=== PATIENT | male | born 1950 | race Caucasian/White ===

== ENCOUNTER 2022-09-15 10:45 | Outpatient (REF) | payer BC, SELFPAY ==
[2022-09-15 11:20] LABS: MANUAL DIFF FLAG NO
[2022-09-15 11:47] LABS: Basophils Absolute Auto 0.1 X10*3/uL (0.0-0.2); Basophils Percent Auto 1.3 % (0-2); Eosinophils Absolute Auto 0.1 X10*3/uL (0.0-0.4); Eosinophils Percent Auto 0.8 % (0-4); Hematocrit 45.1 % (42.0-52.0); Hemoglobin 15.4 g/dl (14.0-18.0); Imm Gran Abs Auto 0.02 X10*3/uL (0.00-0.03); Imm Gran Pct Auto 0.3 % (0.0-0.4); Lymphocytes Absolute Auto 2.6 X10*3/uL (1.2-4.9); Lymphocytes Percent Auto 33.9 % (20-40); Mean Corpuscular HGB Conc 34.1 g/dl (31.0-36.0); Mean Corpuscular Hemoglobin 30.8 pg (27.0-33.0); Mean Corpuscular Volume 90.2 fL (80.0-98.0); Mean Platelet Volume 9.9 fL (9.4-12.4); Monocytes Absolute Auto 0.7 X10*3/uL (0.1-1.2); Monocytes Percent Auto 9.3 % (2-11); Neutrophils Absolute Auto 4.2 x10*3/uL (2.0-8.3); Neutrophils Percent Auto 54.4 % (45-73); Platelet Count 298 X10*3/uL (160-400); Red Cell Distribution Width 12.8 % (11.0-16.0); White Blood Count 7.7 X10*3/uL (4.8-10.8)
[2022-09-15 12:35] LABS: TSH reflex Free T4 1.15 uIU/mL (0.32-4.0)
[2022-09-15 12:38] LABS: Anion Gap 14 (12-20); Blood Urea Nitrogen 25 mg/dL (9-16); Calcium 9.5 mg/dL (8.4-10.2); Carbon Dioxide 25 mmol/L (22-29); Chloride 105 mmol/L (96-108); Estimated Glomerular Filt Rate 60; Glucose Random 101 mg/dL (60-115); Potassium 4.8 mmol/L (3.3-5.1); Sodium 139 mmol/L (135-145)
[2022-09-15 13:28] LABS: Folate 9.8 ng/mL (> or = 4.0); Vitamin B12 490 pg/mL (200-900)
[2022-09-21 12:41] LABS: Vitamin D 25-OH, D2 <4 ng/mL; Vitamin D 25-OH, D3 31 ng/mL; Vitamin D 25-OH, Total 31 ng/mL (30-100)
== END 2022-09-15 10:46 | disposition home or self-care (01) ==
LOC: HO.LAB 10:45
PROVIDERS: PCP Internal Medicine; Visit Provider Psychiatry & Neurology Neurology
DX: R41.89 Other symptoms and signs involving cognitive functions and awareness (principal); R47.89 Other speech disturbances
CPT/HCPCS: 36415; 80048; 82306; 82607; 82746; 84443; 85025

== ENCOUNTER 2022-09-26 14:16 | Outpatient (REF) | payer BC, SELFPAY ==
--- NOTE | ~2022-09-26 | MR_ITS ---
EXAMINATION: MR BRAIN WITHOUT CONTRAST CLINICAL INFORMATION: Speech disturbance. Memory problems. COMPARISON: None TECHNIQUE: Multiplanar, multisequence imaging of the brain was performed without contrast. FINDINGS: No diffusion abnormalities are identified to suggest an acute infarct. No hydrocephalus evident. No mass effect or midline shift is seen. Moderate diffuse brain parenchymal volume loss noted with ex vacuo dilatation of the ventricles. Nonspecific minimal scattered white matter signal changes may be due to chronic microangiopathy. Mild ex vacuo dilatation along the lateral juares of the lateral ventricles near the frontal horns may be due to focal chronic infarcts. No extra-axial fluid collections are seen. The brainstem and cerebellum are normal. The gradient refocused acquisition demonstrates no pathologic magnetic susceptibility artifact to indicate underlying acute or chronic blood products. The craniovertebral junction, marrow signal, and midline structures are normal. The major intracranial flow voids at the level of the [place] of [place] are preserved. The dural venous sinus flow voids are maintained. The mastoid air cells and paranasal sinuses are well aerated. MR/MR head/brain wo con IMPRESSION: No acute intracranial process. Moderate diffuse parenchymal volume loss and mild chronic white matter microangiopathy.
== END 2022-09-26 14:17 | disposition home or self-care (01) ==
LOC: HO.MRI 14:16
PROVIDERS: Visit Provider Psychiatry & Neurology Neurology
DX: R47.89 Other speech disturbances (principal); R41.89 Other symptoms and signs involving cognitive functions and awareness
CPT/HCPCS: 70551

== ENCOUNTER → 2022-12-18 11:00 | Outpatient (BNVA) | payer BC, SELFPAY | PROVIDERS: PCP Internal Medicine; Visit Provider Psychiatry & Neurology Neurology | DX: R47.89 Other speech disturbances (principal); R41.89 Other symptoms and signs involving cognitive functions and awareness; F41.9 Anxiety disorder, unspecified ==

== ENCOUNTER 2024-12-16 11:23 | Outpatient (AMB) | payer BC, SELFPAY ==
--- NOTE | 2024-12-16 11:24 | A.OFFVIS_ITS ---
Vital Signs 12/16/24 11:26 Height 6 ft 4 in Weight 270 lb BMI 32.9 BP 132/88 Blood Pressure Location Rt brachial Position Sitting Intake Visit Reasons: f/u appt Intake Note: Patient presents for follow up Allergies No Known Allergies Allergy (Verified 12/16/24 11:27) Medication List - Last Reconciled 12/16/24 by Tonia Coe MD amlodipine 10 mg PO DAILY apple cider vinegar mg PO DAILY citalopram 20 mg PO DAILY lorazepam 0.5 mg PO BID PRN magnesium oxide 400 mg PO DAILY metoprolol succinate ER 50 mg PO DAILY az-er-io1-hap-zhh-wqsq-lut-mitch 200-125-50 mg 1 cap PO DAILY pravastatin 20 mg PO DAILY warfarin 5 mg PO DAILY HPI Comments Details: 74y/o male comes for follow up of short term memory issues that started 6 years ago.He comes for follow up after 2 years. Citalopram helps and he alos take slorazepam He thought his father had Alzheimer but recently learnt that it was Lewy body disease. 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 He is accompanied by his girlfriend who helps with history. Even while working ( he used to travel - retired 2 years ago) he left his hotel room without his suitcase.He was rushing out and was anxious at that time. 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 He retired 2 years ago his anxiety is better but gets overwhelmed if eh has multiple appointments or commitments. He worries a lot.No h/o anxiety or panic attack .Noh/o depression No h/o head injury . 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 He gave his dog the patients medication and had to take the dog to ER.He freque ntly misplaces. He drives good. No accidents. He sleeps ok . He has some daytime fatigue and he takes 1 nap. No gasping arousals. He has had some arousals at night. [facility] Medical History Hypersomnia Snoring Polio Depression Anxiety Atrial fibrillation GERD (gastroesophageal reflux disease) Hyperlipidemia Surgical History History of spinal surgery Hx of tonsillectomy History of esophagogastroduodenoscopy H/O colonoscopy Family History Father Prostate cancer Alzheimer disease Mother Enlarged heart Social History Alcohol intake: current Alcohol intake frequency: holidays/special occasions only Patient Tobacco Use Status: Former Tobacco user Physical Exam Vital Signs: Last Vital Signs BP 132/88 12/16/24 11:26 BMI result Body Mass Index 32.9 Const Orientation/consciousness: patient oriented x3 Neuro General: patient oriented x3, gait normal, tone normal, moves all extremities and no focal motor deficits Cranial nerves: Yes Nystagmus not present, Yes Normal facial strength present and Yes Midline tongue present Motor exam (neuro): 5/5 motor strength present throughout Orientation What is the (year) (season) (date) (day) (month)?: year, season, date, day and month Where are we (state) (county) (town or city) (hospital) (floor)?: state, county, town or city, hospital/clinic and floor Registration Name of 3 unrelated objects clearly and slowly, then ask patient to repeat all 3 of them. (1st repeat determines score. Make sure they can repeat all three): object 1, object 2 and object 3 Attention & Calculation (CHOOSE ONE) Spell WORLD backwards (DLROW): 5 letters Recall Ask patient to repeat the 3 items from question #3.: object 1, object 2 and object 3 Language Show patient a wristwatch & ask what it is. Repeat for pencil.: watch and pencil Ask the patient to repeat the phrase 'No ifs, ands, or buts' after you.: correct Ask the patient to 'take a piece of paper with their right hand' 'fold paper in half' 'place paper on floor': take paper in right hand, fold paper in half and place paper on floor Print the sentence 'CLOSE YOUR EYES' on a piece. If patient actually closes eyes then score.: followed written direction Give patient a blank piece of paper & ask to write a sentence. Score if it contains a noun & verb.: sentence contains subject and verb Ask patient to copy figure of intersecting pentagons exactly. Score if all 10 angles & 2 intersects are included.: all 10 angles present & 2 are intersected Score Score: 30 Assessment & Plan Assessment & Plan (1) Cognitive change: Comment: Untreated sleep apnea ?? mood related Code(s): R41.89 - Other symptoms and signs involving cognitive functions and awareness Category: Medical (2) Anxiety: Comment: with panic disorder Code(s): F41.9 - Anxiety disorder, unspecified Category: Medical (3) Word finding difficulty: Code(s): R47.89 - Other speech disturbances Category: Medical Plan MRI Brain and labs reviewed Continue citalopram 20mg qd Home sleep test to r/o sleep apnea. PET AMYloid scan Orders: Orders PET Brain beta amyloid Today R41.89 - Other symptoms and signs involving cognitive functions and awareness Coding Level of Care Code Est Pt Level 4 (48592) Diagnoses Cognitive change R41.89 Anxiety F41.9 Word finding difficulty R47.89
[2024-12-16 11:26] VITALS: BP 132/88; BMI 32.9
== END 2024-12-16 12:00 | disposition home or self-care (01) ==
PROVIDERS: PCP Internal Medicine; Visit Provider Psychiatry & Neurology Neurology
DX: R41.89 Other symptoms and signs involving cognitive functions and awareness (principal); F41.9 Anxiety disorder, unspecified; R47.89 Other speech disturbances
CPT/HCPCS: 99214

== ENCOUNTER 2025-01-22 13:50 | Outpatient (REF) | payer MEDICARE, SELFPAY ==
--- OUTSIDE RECORDS SUMMARY | 2025-01-22 16:44 | XMS_ITS | Encounter Summary ---
Author Organization [facility] Address [address] [place] [address] Care Team Providers Care Insole Reinforcer Name Role Phone Gabriele Roberson MD Primary Care Provider [phone] Reason for Referral * Imaging (Routine) - Pending Review Specialty Diagnoses / Procedures Referred By Srikanth angel Referred To Contact Radiology Diagnoses Other symptoms and signs involving cognitive functions and awareness Procedures PET CT Limited Area Initial Tonia Coe MD [facility] [address] [place] [address] Phone: tel: fax: [facility] Referral ID Status Reason Start Date Expiration Date V isits Requested Visits Authorized [id number] Pending Review 01/08/2025 01/08/2026 1 1 Reason for Visit * Imaging (Routine) - Pending Review Specialty Diagnoses / Procedures Referred By Srikanth angel Referred To Contact Radiology Diagnoses Other symptoms and signs involving cognitive functions and awareness Procedures PET CT Limited Area Initial Tonia Coe MD [facility] [address] [place] [address] Phone: tel: fax: [facility] Referral ID Status Reason Start Date Expiration Date V isits Requested Visits Authorized [id number] Pending Review 01/08/2025 01/08/2026 1 1 Encounter Details Date Type Department Care Team (Latest Contact Info) Description 01/09/2025 2:00 PM EST - 01/09/2025 11:59 PM EST Hospital Encounter [facility] PET Scan [address] [place] [address] Other symptoms and signs involving cognitive functions and awareness Discharge Disposition: Home or Self Care Social History Tobacco Use Types Packs/Day Years Used Date Smoking Tobacco: Former Cigarettes Q uit: 05/28/2008 Smokeless Tobacco: Never Alcohol Use Standard Drinks/Week Comments No 0 (1 standard drink = 0.6 oz pur e alcohol) Sex and Gender Information Value Date Recorded Sex Assigned at Not on file Legal Sex Male 6:43 AM EST Gender Identity Not on file Sexual Orientation Not on file documented as of this encounter Medications at Time of Discharge APPLE CIDER VINEGAR ORAL Take by mouth. citalopram (CeleXA) 10 mg tablet Take 1 tablet (10 mg total) by mouth 1 (one) time each day. 09/11/2022 CYANOCOBALAMIN, VITAMIN B-12, ORAL Take by mouth. magnesium oxide (MAG-OX) 400 mg magnesium tablet Take 1 tablet (400 mg total) by mouth 1 (one) time each day. OMEGA-3 FATTY ACIDS-FISH OIL ORAL Take by mouth. amLODIPine (NORVASC) 10 mg tablet Take 1 tablet (10 mg total) by mouth 1 (one) time each day. 07/22/2024 01/16/2025 metoprolol succinate (TOPROL-XL) 50 mg 24 hr tablet TAKE 1 TABLET BY MOUTH EVERY DAY 90 tablet 10/21/2024 01/16/2025 pravastatin (PRAVACHOL) 20 mg tablet TAKE 1 TABLET BY MOUTH EVERY DAY 90 tablet 10/21/2024 01/20/2025 warfarin (COUMADIN) 5 mg tablet TAKE 1-1.5 TABLETS BY MOUTH DAILY. DIRECTED. MAY CAUSE HEAVY BLEEDING. TAKE AT SAME TIME EVERY DAY. DO NOT CHANGE DIETARY HABITS. 06/25/2024 01/22/2025 documented as of this encounter Discharge Disposition Disposition Code Departure Means Destination Home or Self Care documented in this encounter Plan of Treatment Upcoming Encounters Date Type Department Care Team (Latest Contact Info) Description 01/26/2025 9:15 AM EST [facility] - [facility] [id number] 03/09/2025 3:30 PM EDT Ancillary Procedure [facility] - [address] [place] [address] 07/24/2025 2:40 PM EDT Office Visit [facility] - [address] [place] [address] Demetrio Alexander NP [address] [place] [address] Pending Results Name Type Priority Associated Diagnoses Date /Time PET CT Limited Area Initial Imaging Routine Other symptoms and signs involving cognitive functions and awareness 01/09/2025 3:10 PM EST Scheduled Orders Name Type Priority Associated Diagnoses Orde r Schedule PET CT Limited Area Initial Imaging Routine Other symptoms and signs involving cognitive functions and awareness Once for 1 Occurrences starting 01/08/2025 until 01/08/2025 documented as of this encounter Visit Diagnoses Diagnosis Other symptoms and signs involving cognitive functions and awareness documented in this encounter Administered Medications Inactive Administered Medications - up to 3 most recent administrations Medication Order MAR Action Action Date Dose Rate Site F-18 florbetapir radio-isotope injection 10 millicurie 10 millicurie, intravenous, Once in imaging, Starting on Sun01/09/25 at 1400, For 1 dose Given 01/09/2025 2:00 PM EST 10 millicuries Right Antecubital documented in this encounter Orders Medications Ordered That Moustapha ht Not Have Been Administered Count Last Ordered Date First Ordered Date F-18 florbetapir radio-isoto pe injection 10 millicurie 1 01/09/2025 documented in this encounter Care Teams Insole Reinforcer Relationship Specialty Start Date End Date Gabriele Roberson MD [address] [place] [address] PCP - General Internal Medicine 10/13/24 documented as of this encounter
--- OUTSIDE RECORDS SUMMARY | 2025-01-22 16:44 | XMS_ITS | Encounter Summary ---
Author Organization [facility] Address [address] [place] [address] Care Team Providers Care Bean Viner Name Role Phone Gabriele Roberson MD Primary Care Provider [phone] Reason for Referral * Imaging (Routine) - Pending Review Specialty Diagnoses / Procedures Referred By Contac t Referred To Contact Cardiology Diagnoses Atrial fibrillation, unspecified type (CMS/HCC) Procedures Transthoracic echocardiogram (TTE) complete with PRN contrast, bubble, strain, and 3D order panel SC TTE W 2D IMAGE COMPLETE W DOPPLER ECHO & COLOR FLOW DOPPLER ECHO SC SHILPA 2D COMPLETE W/CONTRAST OR W & WO CONTRAST WITH DOPPLER Demetrio Alexander NP [address] [place] [address] Phone: tel: fax: [facility] Referral ID Status Reason Start Date Expiration Date V isits Requested Visits Authorized [id number] Pending Review 01/20/2025 01/20/2026 1 1 Reason for Visit * Reason Comments Follow-up Encounter Details Date Type Department Care Team (Late st Contact Info) Description 01/20/2025 10:40 AM EST Office Visit [facility] [address] [facility] [address] [place] [phone] Demetrio Alexander NP [address] [place] [address] Atrial fibrillation, unspecified type (CMS/HCC) (Primary Dx); Hyperlipidemia, unspecified hyperlipidemia type; Primary hypertension Social History Tobacco Use Types Packs/Day Years [...] on file documented as of this encounter Last Filed Vital Signs Vital Sign Reading Time Taken Comments Blood Pressure 122/66 01/20/2025 10:49 AM EST Pulse 58 01/20/2025 10:49 AM EST Temperature - - Respiratory Rate - - Oxygen Saturation 99% 01/20/2025 10:49 AM EST Inhaled Oxygen Concentration - - Weight 124 kg (274 lb) 01/20/2025 10:49 AM EST Height 193 cm (6' 4 ) 01/20/2025 10:49 AM EST Body Mass Index 33.35 01/20/2025 10:49 AM EST documented in this encounter Ordered Prescriptions Prescription Sig Dispense Quantity Refills Last Filled Start Date End Date pravastatin (PRAVACHOL) 20 mg tablet Take 2 tablets (40 mg total) by mouth 1 (one) time each day. 90 tablet 01/20/2025 documented in this encounter Progress Notes * Demetrio Alexander NP - 01/20/2025 10:40 AM ESTAssociated Problem(s): Atrial fibrillation (CMS/HCC) Patient is in atrial fibrillation today. He reports that he does not have any symptoms. Denies any abnormal bleeding. He is rate controlled with metoprolol and is on warfarin for CVA prophylaxis. Patient has a [id number] score of a 2 and should remain anticoagulated. I am also going to be updating an echocardiogram. Orders: ECG 12 lead Transthoracic echocardiogram (TTE) complete with PRN contrast, bubble, strain, and 3D order panel; Future * Demetrio Alexander NP - 01/20/2025 10:40 AM ESTAssociated Problem(s): Hyperlipidemia Most recent LDL value I have reports that it was elevated at 133. I would like this to be under 100and closer to 70. Him going to increase his dosage of the pravastatin have him redraw a lipid profile and 3 months. Pravastatin new dosage will be 40 mg p.o. daily. Instructed to call 911 or go to the emergency room should the patient begin to experience chest pain or pressure lasting greater than 10 minutes does not resolve with rest. Orders: Lipid panel; Future * Demetrio Alexander NP - 01/20/2025 10:40 AM ESTAssociated Problem(s): Hypertension Well-controlled. Continue current medication regiment. * Demetrio Alexander NP - 01/20/2025 10:40 AM EST Images from the original note were not included. [facility] PRIMARY WATCH CASE POLISHER: Ashley Mercado MD PCP: Gabriele Roberson MD HPI: Juice Pennington is a 74 y.o. old male who presents for cardiac follow-up: 1. Chronic A-fib 2. Hyperlipidemia 3. Hypertension Patient was last in the office a year and a half prior to this appointment. He also has a past medical history significant for anxiety disorder, depression, GERD, cervical radiculitis. At his previous appointment he reportedly was doing well from a cardiac standpoint. Was denying all cardiac symptoms and was walking for 20 minutes a day at a moderate to fast pace with his dogs. Patient is here for routine cardiac follow-up. He seems to be doing well from a cardiac standpoint.He reports that he is relatively active during the day, but he does slow down during the winter dueto the unpleasantness of walking outside in cold weather and over ice. He is relatively active during the day regardless, he is retired, but his works so he does a lot of the household responsibi lities. Denies chest pain, pressure, shortness of breath, dyspnea exertion, dizziness, lightheadedness, presyncope or syncope. The patient denies palpitations, peripheral edema, abdominal distention,PND or orthopnea. There have been no falls or cardiac related hospitalizations since the last office visit. He also denies any abnormal bleeding. ACTIVE MEDICATIONS: Outpatient Medications Marked as Taking for the 01/20/25 encounter (Office Visit) with Demetrio Alexander NP Medication Sig Dispense Refill amLODIPine (NORVASC) 10 mg tablet TAKE 1 TABLET BY MOUTH EVERY DAY 90 tablet 0 APPLE CIDER VINEGAR ORAL Take by mouth. citalopram (CeleXA) 10 mg tablet Take 1 tablet (10 mg total) by mouth 1 (one) time each day. CYANOCOBALAMIN, VITAMIN B-12, ORAL Take by mouth. magnesium oxide (MAG-OX) 400 mg magnesium tablet Take 1 tablet (400 mg total) by mouth 1 (one) timeeach day. metoprolol succinate (TOPROL-XL) 50 mg 24 hr tablet TAKE 1 TABLET BY MOUTH EVERY DAY 90 tablet 0 OMEGA-3 FATTY ACIDS-FISH OIL ORAL Take by mouth. pravastatin (PRAVACHOL) 20 mg tablet Take 2 tablets (40 mg total) by mouth 1 (one) time each day. 90 tablet 0 warfarin (COUMADIN) 5 mg tablet TAKE 1-1.5 TABLETS BY MOUTH DAILY. DIRECTED. MAY CAUSE HEAVY BLEEDING. TAKE AT SAME TIME EVERY DAY. DO NOT CHANGE DIETARY HABITS. [DISCONTINUED] pravastatin (PRAVACHOL) 20 mg tablet TAKE 1 TABLET BY MOUTH EVERY DAY 90 tablet 0 PAST MEDICAL HISTORY: Patient Active Problem List Diagnosis Anxiety Atrial fibrillation (CMS/HCC) Cervical radiculitis COVID-19 virus detected Depression GERD (gastroesophageal reflux disease) Hyperlipidemia Hypertension Polio ALLERGIES: No Known Allergies SOCIAL HISTORY: Social History Tobacco Use Smoking status: Former Current packs/day: 0.00 Types: Cigarettes Quit date: 05/28/2008 Years since quittin.6 Smokeless tobacco: Never Substance Use Topics Alcohol use: No PHYSICAL EXAM: Vitals: 01/20/25 1049 BP: 122/66 BP Location: Left arm Patient Position: Sitting BP Cuff Size: Large adult Pulse: 58 SpO2: 99% Weight: 124 kg (274 lb) Height: 1.93 m (76 ) Physical Exam Constitutional: General: He is not in acute distress. HENT: Head: Normocephalic. Right Ear: External ear normal. Left Ear: External ear normal. Nose: Nose normal. Eyes: Conjunctiva/sclera: Conjunctivae normal. Cardiovascular: Rate and Rhythm: Normal rate. Rhythm irregular. Pulses: Normal pulses. Heart sounds: Normal heart sounds. No murmur heard. No friction rub. No gallop. Pulmonary: Effort: Pulmonary effort is normal. Breath sounds: Normal breath sounds. No wheezing, rhonchi or rales. Chest: Chest wall: No tenderness. Abdominal: General: There is no distension. Musculoskeletal: General: No swelling or tenderness. Cervical back: Neck supple. Right lower leg: No edema. Left lower leg: No edema. Skin: General: Skin is warm and dry. Neurological: General: No focal deficit present. Mental Status: He is alert and oriented to person, place, and time. Psychiatric: Mood and Affect: Mood normal. Behavior: Behavior normal. Thought Content: Thought content normal. Judgment: Judgment normal. EKG: TESTING: ASSESSMENT/PLAN: Assessment & Plan Atrial fibrillation, unspecified type (CMS/HCC) Patient is in atrial fibrillation today. He reports that he does not have any symptoms. Denies any abnormal bleeding. He is rate controlled with metoprolol and is on warfarin for CVA prophylaxis. Patient has a [id number] score of a 2 and should remain anticoagulated. I am also going to be updating an echocardiogram. Orders: ECG 12 lead Transthoracic echocardiogram (TTE) complete with PRN contrast, bubble, strain, and 3D order panel; Future Hyperlipidemia, unspecified hyperlipidemia type Most recent LDL value I have reports that it was elevated at 133. I would like this to be under 100and closer to 70. Him going to increase his dosage of the pravastatin have him redraw a lipid profile and 3 months. Pravastatin new dosage will be 40 mg p.o. daily. Instructed to call 911 or go to the emergency room should the patient begin to experience chest pain or pressure lasting greater than 10 minutes does not resolve with rest. Orders: Lipid panel; Future Primary hypertension Well-controlled. Continue current medication regiment. Thank you for allowing us to participate in the care of this patient. The patient will follow up in6 months, sooner PRN. As per AHA guidelines and previously established plan of care by Dr. Ashley Mercado MD, we discussedthe following today: 1. Atrial fibrillation, unspecified type (CMS/HCC) 2. Hyperlipidemia, unspecified hyperlipidemia type 3. Primary hypertension [facility] documented in this encounter Plan of Treatment Upcoming Encounters Date Type Department Care Team (Latest Contact Info) Description 01/26/2025 9:15 AM EST Anticoagulation - Warfarin Visit [facility] [address] [place] [address] 03/09/2025 3:30 PM EDT Ancillary Procedure [facility] - [address] [place] [address] 07/24/2025 2:40 PM EDT Office Visit [facility] - [address] [place] [address] Demetrio Alexander NP [address] [place] [address] Scheduled Orders Name Type Priority Associated Diagnoses Orde r Schedule Lipid panel Lab Routine Hyperlipidemia, unspecified hyperlipidemia type Expected: 01/20/2025, Expires: 01/20/2026 Transthoracic echocardiogram (TTE) complete with PRN contrast, bubble, strain, and 3D order panel Echocardiography Routine Atrial fibrillation, unspecified type (CMS/HCC) 1 Occurrences starting 01/20/2025 until 01/20/2026 documented as of this encounter Procedures Procedure Name Priority Date/Time Associated Diagnosis Comments ECG 12-LEAD Routine 01/20/2025 1:38 PM EST Atrial fibrillation, unspecified type (CMS/HCC) documented in this encounter Results * ECG 12 lead (01/20/2025 1:38 PM EST) 01/20/2025 10:5 3 AM EST us Demetrio Alexander NP ECG ORDERABLES Final Result GEMUSE documented in this encounter Visit Diagnoses Diagnosis Atrial fibrillation, unspecified type ([facility])- Primary Hyperlipidemia, unspecified hyperlipidemia type Primary hypertension Unspecified essential hypertension documented in this encounter Discontinued Medications Medication Sig Discontinue Reason Start Date End Da te pravastatin (PRAVACHOL) 20 mg tablet TAKE 1 TABLET BY MOUTH EVERY DAY 10/21/2024 01/20/2025 documented as of this encounter Care Teams Bean Viner Relationship Specialty Start Date End Date Gabriele Roberson MD [address] [place] [address] PCP - General Internal Medicine 10/13/24 documented as of this encounter
--- OUTSIDE RECORDS SUMMARY | 2025-01-22 16:44 | XMS_ITS | Encounter Summary ---
Author Organization [facility] Address [address] [place] [address] Care Team Providers Care Real Estate Legal Secretary Name Role Phone Gabriele Roberson MD Primary Care Provider [phone] Reason for Visit * Reason Onset Date Comments Request For Order(s) 01/21/2025 Inr lab Encounter Details Date Type Department Care Team (Late st Contact Info) Description 01/21/2025 Telephone [facility] [address] [place] [address] Yumi Castillo LPN Request For Order(s) (Inr lab) Social History Tobacco Use Types Packs/Day Years [...] on file documented as of this encounter Plan of Treatment Upcoming Encounters Date Type Department Care Team (Latest Contact Info) Description 01/26/2025 9:15 AM EST Anticoagulation - Warfarin Visit [facility] [address] [place] [address] 03/09/2025 3:30 PM EDT Ancillary Procedure [facility] - [address] [place] [address] 07/24/2025 2:40 PM EDT Office Visit [facility] - [address] [address] Demetrio Alexander NP [address] [place] [address] Scheduled Orders Name Type Priority Associated Diagnoses Orde r Schedule Prothrombin time with INR Lab Routine Atrial fibrillation, unspecified 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
--- OUTSIDE RECORDS SUMMARY | 2025-01-22 16:44 | XMS_ITS | Encounter Summary ---
Author Organization [facility] Address [address] [place] [address] Care Team Providers Care Staker Surveying Name Role Phone Gabriele Roberson MD Primary Care Provider [phone] Encounter Details Date Type Department Care Team (Latest Contact Info) Description 12/11/2024 9:00 AM EST Anticoagulation - Warfarin Visit [facility] [address] [place] [address] Atrial fibrillation, unspecified type (CMS/HCC) (Primary Dx) Social History Tobacco Use Types Packs/Day Years [...] on file documented as of this encounter Progress Notes * Henrietta Castillo LPN - 12/11/2024 9:00 AM ESTAddended by: HENRIETTA CASTILLO on: 01/12/2025 01:13 PM Modules accepted: Level of Service documented in this encounter Plan of Treatment Upcoming Encounters Date Type Department Care Team (Latest Contact Info) Description 01/26/2025 9:15 AM EST Anticoagulation - Warfarin Visit [facility] [address] [place] [address] 03/09/2025 3:30 PM EDT Ancillary Procedure [facility] - [address] [place] [address] 07/24/2025 2:40 PM EDT Office Visit [facility] - [address] [place] [address] Demetrio Alexander NP [address] [place] [address] documented as of this encounter Procedures Procedure Name Priority Date/Time Associated Diagnosis Comments POC PROTIME INR BLOOD Routine 12/11/2024 10:52 AM EST Atrial fibrillation, unspecified type (CMS/HCC) documented in this encounter Results * POC Protime INR Blood (12/11/2024 10:52 AM EST) Lot Number INR POC 2.0 Prothrombin Time POC Exp Date Blood 12/11/2024 10:5 2 AM EST Soraida Palomo DO POINT OF CARE TEST ENTER/EDIT ORDERABLES Edited Result - Final documented in this encounter Visit Diagnoses Diagnosis Atrial fibrillation, unspecified type (CMS/HCC)- Primary documented in this encounter Care Teams Staker Surveying Relationship Specialty Start Date End Date Gabriele Roberson MD [address] [place] [id number] PCP - General Internal Medicine 10/13/24 documented as of this encounter
--- OUTSIDE RECORDS SUMMARY | 2025-01-22 16:44 | XMS_ITS | Encounter Summary ---
Author Organization [facility] Address [address] [place] [address] Care Team Providers Care Metal Machine Setter Name Role Phone Gabriele Roberson MD Primary Care Provider [phone] Encounter Details Date Type Department Care Team (Latest Contact Info) Description 01/08/2025 9:30 AM EST Anticoagulation - Warfarin Visit [facility] [address] [place] [address] Atrial fibrillation, unspecified type (CMS/HCC) (Primary Dx) [...] Visit [facility] [address] [place] [address] 03/09/2025 3:30 PM EDT Ancillary Procedure [facility] - [address] [place] [address] 07/24/2025 2:40 PM EDT Office Visit [facility] - [address] [place] [address] Demetrio Alexander NP [address] [place] [address] documented as of this encounter Procedures Procedure Name Priority Date/Time Associated Diagnosis Comments POC PROTIME INR BLOOD Routine 01/08/2025 9:36 AM EST Atrial fibrillation, unspecified type (CMS/HCC) documented in this encounter Results * POC Protime INR Blood (01/08/2025 9:36 AM EST) Lot Number INR POC 1.9 Prothrombin Time POC Exp Date Blood 01/08/2025 9:36 AM EST us Gabriele Roberson MD POINT OF CARE TEST ENTER/EDIT ORDERABLES Final Result documented in this encounter Visit Diagnoses Diagnosis Atrial fibrillation, unspecified type (CMS/HCC)- Primary documented in this encounter Care Teams Metal Machine Setter Relationship Specialty Start Date End Date Gabriele Roberson MD [address] [place] [id number] PCP - General Internal Medicine 10/13/24 documented as of this encounter
--- OUTSIDE RECORDS SUMMARY | 2025-01-22 16:45 | XMS_ITS | Clinical Summary ---
Author Organization [facility] [address] [place] [address] [place] [phone] Phone Care Team Providers Care Supervisor Lace Tearing Name Role Phone Gabriele Roberson MD Primary Care Provider [phone] Allergies No known active allergies Medications APPLE CIDER VINEGAR ORAL Take by mouth. Active CYANOCOBALAMIN, VITAMIN B-12, ORAL Take by mouth. Active citalopram (CeleXA) 10 mg tablet Take 1 tablet (10 mg total) by mouth 1 (one) time each day. 09/11/20 22 Active magnesium oxide (MAG-OX) 400 mg magnesium tablet Take 1 tablet (400 mg total) by mouth 1 (one) time each day. Active OMEGA-3 FATTY ACIDS-FISH OIL ORAL Take by mouth. Active amLODIPine (NORVASC) 10 mg tabletIndicatio ns:Essential (primary) hypertension,Ch ronic atrial fibrillation, unspecified (CMS/HCC) TAKE 1 TABLET BY MOUTH EVERY DAY 90 tablet 01/16/20 25 Active metoprolol succinate (TOPROL-XL) 50 mg 24 hr tablet TAKE 1 TABLET BY MOUTH EVERY DAY 90 tablet 01/16/20 25 Active warfarin (COUMADIN) 5 mg tablet Take 1-1.5 tablets (5-7.5 mg total) by mouth 1 (one) time each day with dinner. 135 tablet 1 01/22/20 25 Active pravastatin (PRAVACHOL) 40 mg tablet Take 1 tablet (40 mg total) by mouth at bedtime. 30 each 11 01/22/20 25 026 Active amLODIPine (NORVASC) 10 mg tablet Take 1 tablet (10 mg total) by mouth 1 (one) time each day. 07/22/20 24 025 Discontinued warfarin (COUMADIN) 5 mg tablet TAKE 1-1.5 TABLETS BY MOUTH DAILY. DIRECTED. MAY CAUSE HEAVY BLEEDING. TAKE AT SAME TIME EVERY DAY. DO NOT CHANGE DIETARY HABITS. 06/25/20 24 025 Discontinued(Re order) metoprolol succinate (TOPROL-XL) 50 mg 24 hr tablet TAKE 1 TABLET BY MOUTH EVERY DAY 90 tablet 10/21/20 24 025 Discontinued pravastatin (PRAVACHOL) 20 mg tablet TAKE 1 TABLET BY MOUTH EVERY DAY 90 tablet 10/21/20 24 025 Discontinued pravastatin (PRAVACHOL) 20 mg tablet Take 2 tablets (40 mg total) by mouth 1 (one) time each day. 90 tablet 01/20/20 025 Discontinued(Fo rmulary change) Active Problems Problem Noted Date Diagnosed Date retirement current use of anticoagulant Hypertension 06/13/2023 Overview (09/12/2024): Last Assessment & Plan: Well-controlled on current regimen of metoprolol 50 mg daily and amlodipine 10 mg daily Assessment & Plan (01/20/2025 1:42 PM EST): Well-controlled. Continue current medication regiment. COVID-19 virus detected 06/16/2022 Hyperlipidemia 11/22/2015 Overview (09/12/2024): Last Assessment & Plan: Continue current pravastatin 20 mg at bedtime, continue to work on dietary and behavioral modification, continue fish oil supplementation for elevated triglycerides Assessment & Plan (01/20/2025 1:42 PM EST): Most recent LDL value I have reports that it was elevated at 133. I would like this to be under 100 and closer to 70. Him going to increase [...] resolve with rest. Orders: Lipid panel; Future Cervical radiculitis 05/15/2014 GERD (gastroesophageal reflux disease) 4 Atrial fibrillation 07/04/2013 Overview (09/12/2024): -Incidentally noted during a colonoscopy in 2012 -Status post cardioversion in September 2013 that was unsuccessful -On Toprol for rate control and aspirin for CVA prophylaxis in light of low chads VASC score of 1 -Started having exertional dyspnea and chest tightness September 2017 most notable when he [place] brisk[place] the airport-status post exercise nuclear stress test??at the end of Oct 2017??for which he exercised??for only 4 min to??108% of max predicted heart rate with no ischemic ECG changes and normal perfusion on nuclear imaging-Toprol was increased to 50 mg daily with good effect for the most part -Repeat echocardiogram most recently performed on 07/12/2018 showing (after review of the images myself) mild concentric LV hypertrophy with low normal LV systolic function and an ejection fraction of 50-55%, mild RV enlargement with moderate to severe right atrial enlargement and mildly reduced RV systolic function, mild to moderate left atrial enlargement, mild mitral regurgitation, mild tricuspid regurgitation, normal RV systolic pressure, and mildly dilated aortic arch at 3.4 cm -Holter monitor on 01/28/2018 showed A. fib throughout the recording. With ventricular response rate average of 77 bpm with a low of 43 bpm during sleeping hours and a high of 136 bpm, rare PVCs and ventricular couplets, shortness of breath episode correlating with normal sinus rhythm Last Assessment & Plan: Rate controlled with metoprolol 50 mg daily, Coumadin for CVA prophylaxis; DOAC was cost prohibitive Assessment & Plan (01/20/2025 1:42 PM EST): Patient is in atrial fibrillation today. He reports that he does not have any symptoms. Denies any abnormal bleeding. He is rate controlled with metoprolol and is on warfarin for CVA prophylaxis. Patient has a [id number] score of a 2 and should remain anticoagulated. I am also going to be updating an echocardiogram. Orders: ECG 12 lead Transthoracic echocardiogram (TTE) complete with PRN contrast, bubble, strain, and 3D order panel; Future Anxiety 05/03/2012 Depression 05/03/2012 Polio 07/12/2009 Overview (09/12/2024): Scoliosis Encounters Date Type Department Care Team Description 01/21/2025 Telephone [facility] [address] [place], [place] [address] [address] Yumi Castillo LPN Request For Order(s) (Inr lab) 01/20/2025 10:40 AM EST Office Visit [facility] - [address] [place] [id number] Demetrio Alexander NP Atrial fibrillation, unspecified type (CMS/HCC) (Primary Dx); Hyperlipidemia, unspecified hyperlipidemia type; Primary hypertension 01/09/2025 2:00 PM EST - 01/09/2025 11:59 PM EST Hospital Encounter [facility] PET Scan [address] [place] [id number] Other symptoms and signs involving cognitive functions and awareness Discharge Disposition: Home or Self Care 01/08/2025 9:30 AM EST [facility] [address] [place] [phone] Atrial fibrillation, unspecified type (CMS/HCC) (Primary Dx) 12/11/2024 9:00 AM EST Anticoagulation - Warfarin Visit [facility] [address] [place], [place] [address], [place] [address] Atrial fibrillation, unspecified type (CMS/HCC) (Primary Dx) 11/13/2024 9:00 AM EST Anticoagulation - Warfarin Visit [facility] [address] [place], [place] [address], [place] [address] Atrial fibrillation, unspecified type (CMS/HCC) (Primary Dx) 10/29/2024 11:00 AM EST Office Visit Internal Medicine - [address] [phone] Gabriele Roberson MD Paroxysmal atrial fibrillation (CMS/HCC) (Primary Dx); Primary hypertension; Pure hypercholesterolemia 10/24/2024 Telephone [facility] - [facility] [address] [place] [address] Gabriele Roberson MD Request For Order(s) ([facility] prescriber response form) from Last 3 Months Immunizations Name Administration Dates Next Due Influenza trivalent, 0.5mL (Fluad) 65yo and olde r 10/16/2023 Influenza trivalent, 0.5mL, preservative free (Fluarix; FluLaval; Fluzone) ages 6mo and older (Afluria) 3 years and older 09/21/2005 Pfizer SARS-CoV-2 COVID-19, mRNA, LNP-S, preservative free 02/24/2021,02/03/2021 Pneumococcal conjugate 13 va lent (Prevnar 13, PCV13) 2mo and older 03/27/2022 Pneumococcal polysaccharide 23 valent (Pneumovax 23) 2yo and older 12/06/2018 Td Tetanus diptheria (Tdvax) 7yo and older 12/06 Tdap Tetanus diptheria acell ular pertussis (Boostrix; Adacel) 7yo and older 07/12/2009 Zoster Live 03/29/2022,11/20/2013 Surgical History Surgery Date Site/Laterality Comments TONSILLECTOMY PROCEDURE: HISTORICAL TONSILLECTOMY ESOPHAGOGASTRODUODENOSCOPY 10/19/08 PROCEDURE: PA ESOPHAGOGASTRODUODENOSCOPY TRANSORAL DIAGNOSTIC; COMMENT: mild erosive esophagitis COLONOSCOPY 12/29 PROCEDURE: PA COLONOSCOPY STOMA DX INCLUDING COLLJ SPEC SPX; COMMENT: Andrés; rpt 10 y COLONOSCOPY W/ POLYPECTOMY 07/04/13 PROCEDURE: PA COLSC FLX W/RMVL OF TUMOR POLYP LESION SNARE TQ; COMMENT: adenoma and tics; repeat in 5 yrs. Medical History Medical History Date Comments Polio 07/12/2009 DX:Polio Family History Medical History Relation Name Comments Other: Alzheimer's Father age 85 Lung cancer Maternal Grandfather coal mi ner Heart attack Maternal Grandmother Hyperlipidemia Paternal Grandfather Other: Stomach cancer Paternal Grandmother Relation Name Status Comments Father Maternal Grandfather Maternal Grandmother Paternal Grandfather Paternal Grandmother Social History Tobacco Use Types Packs/Day Years [...] on file Sexual Orientation Not on file Obstetrics History Last Filed Vital Signs Vital Sign Reading [...] Mass Index 33.35 01/20/2025 10:49 AM EST Plan of Treatment Upcoming Encounters Date Type Department Care Team (Latest Contact Info) Description 01/26/2025 9:15 AM EST Anticoagulation - Warfarin Visit Coumadin Clinic - [address] [phone] 03/09/2025 3:30 PM EDT Ancillary Procedure [facility] [address] [facility] 101 [place] [address] 07/24/2025 2:40 PM EDT Office Visit [facility] [address] [facility] 154 [place] [address] Demetrio Alexander NP [address] [place] [address] Health Maintenance Due Date Last Done Comments RSV Immunization Patients 60+ Years Old (1 - Risk 60-74 years 1-dose series) 2012 Zoster Vaccines (2 of 3) 05/24/2022 03/29/2022, 10/27 Abdominal Aortic Aneurysm (AAA) Screen 11/04/2022 Depression Screening 11/04/2022 Falls Risk Assessment 11/04/2022 Hepatitis C Screening 11/04/2022 Social Influencers of Health Screening 11/04/2022 Medicare Annual Wellness Visit 05/02/2024 05/02/2023 Colorectal Cancer Screening: Colonoscopy 05/09/2024 05/09/2019 Hypertension/CHF/CAD Annual BMP Blood Test 11/13/2025 11/13/2024, 10/30/2024, 12/26/2023 DTaP,Tdap,and Td Vaccines (3 - Td or Tdap) 12/06/2028 12/06/2018, 07/12/2009 Cholesterol Screening (Lipid Panel) 01/20/2030 01/20/2025, 10/30/2024, 12/26/2023 Pneumococcal Vaccine: 50+ Years Completed 03/27/2022, 12/06/2018 Influenza Vaccine Completed 12/23/2024, , 09/04/2022, Additional history exists COVID-19 Vaccine Completed 12/30/2024, , 09/04/2022, Additional history exists HIB Vaccines Aged Out No longer eligi ble based on patient's age to complete this topic HPV Vaccines Aged Out No longer eligi ble based on patient's age to complete this topic Hepatitis A Vaccines Aged Out No long er eligible based on patient's age to complete this topic Hepatitis B Vaccines Aged Out No long er eligible based on patient's age to complete this topic IPV Vaccines Aged Out No longer eligi ble based on patient's age to complete this topic MMR Vaccines Aged Out No longer eligi ble based on patient's age to complete this topic Meningococcal ACWY Vaccine Aged Out N o longer eligible based on patient's age to complete this topic Meningococcal B Vacine Aged Out No lo nger eligible based on patient's age to complete this topic RSV Immunization Patients Under 20 months Aged Out No longer eligible based on patient's age to complete this topic Varicella Vaccines Aged Out No longer eligible based on patient's age to complete this topic Procedures Procedure Name Priority Date/Time Associated Diagnosis Comments ECG 12-LEAD Routine 01/20/2025 1:38 PM EST Atrial fibrillation, unspecified type (CMS/HCC) LIPID PANEL WITH REFLEX TO DIRECT LDL Routine 01/20/2025 11:37 AM EST Hyperlipemia POC PROTIME INR BLOOD Routine 01/08/2025 9:36 AM EST Atrial fibrillation, unspecified type (CMS/HCC) POC PROTIME INR BLOOD Routine 12/11/2024 10:52 AM EST Atrial fibrillation, unspecified type (CMS/HCC) BASIC METABOLIC PANEL Routine 11/13/2024 9:36 AM EST DAVIDE (acute kidney injury) (CMS/HCC) POC PROTIME INR BLOOD Routine 11/13/2024 9:12 AM EST Atrial fibrillation, unspecified type (CMS/HCC) COMPLETE BLOOD COUNT Routine 10/30/2024 9:50 AM EST Paroxysmal atrial fibrillation (CMS/HCC) LIPID PANEL WITH REFLEX TO DIRECT LDL Routine 10/30/2024 9:50 AM EST Primary hypertension BASIC METABOLIC PANEL Routine 10/30/2024 9:50 AM EST Primary hypertension ASPARTATE AMINOTRANSFERASE Routine 10/30/2024 9:50 AM EST Primary hypertension ALANINE AMINOTRANSFERASE Routine 9:50 AM EST Primary hypertension HM COLONOSCOPY Routine 05/09/2019 from Last 3 Months or Most Recently Relevant to Health Maintenance Results * ECG 12 lead (01/20/2025 1:38 PM EST) 01/20/2025 10:5 3 AM EST us Demetrio Alexander NP ECG ORDERABLES Final Result GEMUSE * (ABNORMAL) Lipid panel with reflex to direct LDL (01/20/2025 11:37 AM EST) Only the most recent of2 resultswithin the time period is included. Cholesterol 160 0 - 200 mg/dL LAB CHEMISTRY METHOD 01/20/2025 3:22 PM EST [facility] Triglycerides 117 0 - 150 mg/dL LAB CHEMISTRY METHOD 01/20/2025 3:22 PM EST [facility] HDL 35(L) >=40 mg/dL LAB CHEMISTRY METHOD 01/20/2025 3:22 PM [facility] LDL Calculated 102(H) 0 - 100 mg/dL LAB CHEMISTRY METHOD 01/20/2025 3:22 PM EST [facility] VLDL Cholesterol Mike 23.4 mg/dL LAB CHEMISTRY METHOD 01/20/2025 3:22 PM EST [facility] Non HDL Chol. (LDL+VLDL) 125 <145 mg/dL LAB CHEMISTRY METHOD 01/20/2025 3:22 PM EST [facility] Chol/HDL Ratio 4.6(H) 0.0 - 4.4 LAB CHEMISTRY METHOD 01/20/2025 3:22 PM EST [facility] Blood Venous blood specimen / Unknown Venipuncture / Unknown 01/20/2025 11:37 AM EST 01/20/2025 11:37 AM EST Demetrio Alexander NP LAB BLOOD ORDERABLES Final Resul t [facility] [address] [place] [address], * POC Protime INR Blood (01/08/2025 9:36 AM EST) Only the most recent of3 resultswithin the time period is included. Lot Number INR POC 1.9 Prothrombin Time POC Exp Date Blood 01/08/2025 9:36 AM EST Gabriele Roberson MD POINT OF CARE TEST ENTER/EDIT ORDERABLES Final Result * Basic metabolic panel (11/13/2024 9:36 AM EST) Only the most recent of2 resultswithin the time period is included. Sodium 139 133 - 145 mmol/L LAB CHEMISTRY METHOD 11/13/2024 12:44 PM [facility] Potassium 4.8 3.5 - 5.5 mmol/L LAB CHEMISTRY METHOD 11/13/2024 12:44 PM [facility] Chloride 105 96 - 110 mmol/L LAB CHEMISTRY METHOD 11/13/2024 12:44 PM [facility] CO2 26 21 - 32 mmol/L LAB CHEMISTRY METHOD 11/13/2024 12:44 PM [facility] Anion Gap 8 3 - 11 LAB CHEMISTRY METHOD 11/13/2024 12:44 PM [facility] Glucose 95 70 - 100 mg/dL LAB CHEMISTRY METHOD 11/13/2024 12:44 PM [facility] BUN 19 5 - 25 mg/dL LAB CHEMISTRY METHOD 11/13/2024 12:44 PM [facility] Creatinine 1.22 0.70 - 1.30 mg/dL LAB CHEMISTRY METHOD 11/13/2024 12:44 PM [facility] eGFR 63 >=60 mL/min/1. 73m2 LAB CHEMISTRY METHOD 11/13/2024 12:44 PM [facility] Comment:Calculation based on the??Chronic Kidney Disease Epidemiology Collaboration (CKD-EPI) equation refit??without adjustment for race. BUN/Creatinine Ratio 15.6 LAB CHEMISTRY METHOD 11/13/2024 12:44 PM [facility] Calcium 9.2 8.5 - 10.5 mg/dL LAB CHEMISTRY METHOD 11/13/2024 12:44 PM [facility] Blood Venous blood specimen / Unknown Venipuncture / Unknown 11/13/2024 9:36 AM EST 11/13/2024 9:36 AM EST us Gabriele Roberson MD LAB BLOOD ORDERABLES Final Res ult [facility] [address] [place] [address], [place] [phone] * Complete blood count (10/30/2024 9:50 AM EST) [facility] WBC 8.9 4.8 - 10.8 K/mcL LAB HEMETOLOGY METHOD 10/30/2024 11:43 AM [facility] RBC 4.80 4.50 - 5.50 M/mcL LAB HEMETOLOGY METHOD 10/30/2024 11:43 AM [facility] Hemoglobin 15.0 13.5 - 17.5 g/dL LAB HEMETOLOGY METHOD 10/30/2024 11:43 AM [facility] Hematocrit 44.2 42.0 - 54.0 % LAB HEMETOLOGY METHOD 10/30/2024 11:43 AM [facility] MCV 93.1 79.0 - 98.0 FL LAB HEMETOLOGY METHOD 10/30/2024 11:43 AM [facility] MCH 31.6 27.0 - 32.0 pcg LAB HEMETOLOGY METHOD 10/30/2024 11:43 AM [facility] MCHC 33.9 32.0 - 37.0 g/dL LAB HEMETOLOGY METHOD 10/30/2024 11:43 AM [facility] RDW 13.1 11.0 - 15.0 % LAB HEMETOLOGY METHOD 10/30/2024 11:43 AM [facility] Platelets 272 130 - 400 K/mcL LAB HEMETOLOGY METHOD 10/30/2024 11:43 AM [facility] MPV 10.7 7.0 - 11.0 FL LAB HEMETOLOGY METHOD 10/30/2024 11:43 AM [facility] NRBC 0.0 <1.0 % LAB HEMETOLOGY METHOD 10/30/2024 11:43 AM [facility] NRBC Absolute 0.00 <0.10 K/mcL LAB HEMETOLOGY METHOD 10/30/2024 11:43 AM EST [facility] Blood Venous blood specimen / Unknown Venipuncture / Unknown 10/30/2024 9:50 AM EST 10/30/2024 9:50 AM EST us Gabriele Roberson MD LAB BLOOD ORDERABLES Final Res ult [facility] [address] [place] [address], [place] [phone] * Alanine aminotransferase (10/30/2024 9:50 AM EST) ALT (SGPT) 31 10 - 60 unit/L LAB CHEMISTRY METHOD 10/30/2024 11:56 AM EST [facility] Blood Venous blood specimen / Unknown Venipuncture / Unknown 10/30/2024 9:50 AM EST 10/30/2024 9:50 AM EST us Gabriele Roberson MD LAB BLOOD ORDERABLES Final Res ult Performing Organization Address [facility]/ZIP Co de Phone Number [facility] [address] [place] [address], [place] [phone] * Aspartate aminotransferase (10/30/2024 9:50 AM EST) AST (SGOT) 16 10 - 42 unit/L LAB CHEMISTRY METHOD 10/30/2024 11:56 AM EST [facility] Blood Venous blood specimen / Unknown Venipuncture / Unknown 10/30/2024 9:50 AM EST 10/30/2024 9:50 AM EST us Gabriele Roberson MD LAB BLOOD ORDERABLES Final Res ult [facility] [address] [place] [address], [place] [phone] * Colonoscopy (05/09/2019) Colonoscopy No Interpretation , Abstracted Anatomical Region Laterality Modality Other Historical Provider MD HEALTH MAINTENANCE Final Result from Last 3 Months or Most Recently Relevant to Health Maintenance Insurance [employer] - [place] MEDICARE ADVANTAGE Care Teams Supervisor Lace Tearing Relationship Specialty Start Date End Date Gabriele Roberson MD [address] [place] [id number] PCP - General Internal Medicine 10/13/24
== END 2025-01-22 13:51 | disposition home or self-care (01) ==
LOC: CF 13:50
DX: Z13.89 Encounter for screening for other disorder (principal)

== ENCOUNTER 2025-01-29 09:15 | Outpatient (AMB) | payer MEDICARE, SELFPAY ==
[2025-01-29 09:26] VITALS: BP 128/76; PULSE 63; O2SAT 87; BMI 32.9
--- NOTE | 2025-01-29 09:26 | MHC.OFFVIS ---
Vital Signs 01/29/25 09:26 Height 6 ft 4 in Weight 270 lb 8 oz BMI 32.9 BP 128/76 Blood Pressure Location Rt brachial Position Sitting Pulse 63 Pulse Source Pulse Oximeter Pulse Oximetry (%) 87 L Oxygen Delivery Method Room Air Intake Visit Reasons: f/u per MD to discuss PET Scan Intake Note: Patient presents follow PETscan results on next steps Allergies No Known Allergies Allergy (Verified 01/29/25 09:31) HPI Comments Details: 74y/o male comes for follow up of cognitive decline. He states his STM issues started 6 years ago, he frequently forgets where he places things, and has word finding difficulties. He takes Lorazapem and Citalopram for anxiety, snores at night and feels exhausted most days. His father passed at 82 due Lewy body disease. His cognition has been the same. He feels more distracted when multitasking. He is anxious and fatigued most days. 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 His cholesterol is elevated per g/f Yasmeen, and he is starting to eat better due to chronic AFib, he had a complete cardio work up at [facility]. He does not drink alcohol, or smoke. Reviewed PETScan with patient today, and will f/u with APOE4 Gene marker testing as patient is interested in kisunla treatment options. [facility] Medical History Hypersomnia Snoring Polio Depression Anxiety Atrial fibrillation GERD (gastroesophageal reflux disease) Hyperlipidemia Surgical History History of spinal surgery Hx of tonsillectomy History of esophagogastroduodenoscopy H/O colonoscopy Family History Father Prostate cancer Alzheimer disease Mother Enlarged heart Social History Alcohol intake: current Alcohol intake frequency: holidays/special occasions only Patient Tobacco Use Status: Former Tobacco user Physical Exam Vital Signs: Last Vital Signs Pulse 63 01/29/25 09:26 BP 128/76 01/29/25 09:26 Pulse Ox 87 L 01/29/25 09:26 Oxygen Delivery Method Room Air 01/29/25 09:26 BMI result Body Mass Index 32.9 Const Orientation/consciousness: patient oriented x3 Neuro General: patient oriented x3, gait normal, tone normal, moves all extremities and no focal motor deficits Cranial nerves: Yes Nystagmus not present, Yes Normal facial strength present and Yes Midline tongue present Motor exam (neuro): 5/5 motor strength present throughout Results Reviewed Results Reviewed: 09/2022 MR/MR head/brain wo con IMPRESSION: No acute intracranial process. Moderate diffuse parenchymal volume loss and mild chronic white matter microangiopathy. Pet Scan Jan 09, 2025 Findings: Head and Neck Loss of garces-white matter differentiation Prominence of the cereberal sulci and extra-axial CSF Containing Spaces in keeping with Cerebral volume loss. Scattered white matter hypodensities which may represent microangiopathic white matter change. Impression: Positive Study This scan was interpreted using consensus imaging with another board certified radiologist, Dr. Fenton. Assessment & Plan Assessment & Plan (1) Hypersomnia: Code(s): G47.10 - Hypersomnia, unspecified Category: Medical (2) Word finding difficulty: Code(s): R47.89 - Other speech disturbances Category: Medical (3) Cognitive change: Comment: Untreated sleep apnea ?? mood related Code(s): R41.89 - Other symptoms and signs involving cognitive functions and awareness Category: Medical (4) Depression: Code(s): F32.A - Depression, unspecified Category: Medical Qualifiers: Depression Type: unspecified Qualified Code(s): F32.A - Depression, unspecified Plan Fatigue r/o deficiencies with Labs from [facility] and input cbc/cmp/ B12/ Vitd / TSH/ Iron panel/ Ferritin/ Homocystein/ MMA/ Folate Saliva Testing APOE4 Genetic Markers for Dementia HST evaluate for sleep apnea f/u with employment evaluator/case manager Donya vs Warfarin -shared decision making F/u for Kisunla options Orders: Orders RT home sleep study Today G47.19 - Other hypersomnia Homocysteine Today R41.89 - Other symptoms and signs involving cognitive functions and awareness Vitamin B12 and Folate Today R41.89 - Other symptoms and signs involving cognitive functions and awareness Methylmalonic Acid Today G47.9 - Sleep disorder, unspecified, R53.83 - Other fatigue Complete Blood Count no Diff Today R41.89 - Other symptoms and signs involving cognitive functions and awareness Hemoglobin A1c Today R41.89 - Other symptoms and signs involving cognitive functions and awareness TSH reflex Free T4 Today F09 - Unspecified mental disorder due to known physiological condition Vitamin D 25-OH Total Today R41.89 - Other symptoms and signs involving cognitive functions and awareness IRON PROFILE Today G47.9 - Sleep disorder, unspecified, R53.83 - Other fatigue Comprehensive Met. Panel Today R41.89 - Other symptoms and signs involving cognitive functions and awareness Ferritin Today R41.89 - Other symptoms and signs involving cognitive functions and awareness Patient Instructions: APO-E4 Saliva Testing : May use [facility] or [facility] account [email or web address] Complete HST Complete all Labs Reviewed PETscan today, and emphasized good bp management, exercise and diet. MMSE was 30/30 at last visit Will start Kisunla therapy once patient is certain. Coding Level of Care Code Est Pt Level 4 (58623) Complex EM visit Add On G2211 Diagnoses Hypersomnia G47.10 Word finding difficulty R47.89 Cognitive change R41.89 Depression, unspecified depression type F32.A Depression Type: unspecified Time Spent (min) 45
--- OUTSIDE RECORDS SUMMARY | 2025-01-29 10:15 | XMS_ITS | Encounter Summary ---
Author Organization [facility] Address [address] [place] [address] Care Team Providers Care Retail Special Event Associate Name Role Phone Gabriele Roberson MD Primary Care Provider [phone] Reason for Referral * Imaging (Routine) - Pending Review Specialty Diagnoses / Procedures Referred By Contac t Referred To Contact Cardiology Diagnoses Atrial fibrillation, unspecified type (CMS/HCC) Procedures Transthoracic echocardiogram (TTE) complete with PRN contrast, bubble, strain, and 3D order panel OK TTE W 2D IMAGE COMPLETE W DOPPLER ECHO & COLOR FLOW DOPPLER ECHO OK SHILPA 2D COMPLETE W/CONTRAST OR W & WO CONTRAST WITH DOPPLER Demetrio Alexander NP [address] [place] [address] Phone: tel: fax: [facility] Referral ID Status Reason Start Date Expiration Date V isits Requested Visits Authorized [id number] Pending Review 01/20/2025 01/20/2026 1 1 Reason for Visit * Reason Comments Follow-up Encounter Details Date Type Department Care Team (Late st Contact Info) Description 01/20/2025 10:40 AM EST Office Visit [facility] - [facility] [address] [facility] [address] [place] [phone] Demetrio Alexander NP [address] [place] [address] Atrial fibrillation, unspecified type (CMS/HCC) (Primary Dx); [...] warfarin for CVA prophylaxis. Patient has a [id number] score of a 2 and should remain [...] from the original note were not included. [facility] PRIMARY COBOL DEVELOPER: Ashley Phillips MD PCP: Gabriele Roberson MD HPI: Juice [...] warfarin for CVA prophylaxis. Patient has a [id number] score of a 2 and should remain [...] established plan of care by Dr. Ashley Phillips MD, we discussedthe following today: 1. Atrial fibrillation, unspecified type (CMS/HCC) 2. Hyperlipidemia, unspecified hyperlipidemia type 3. Primary hypertension [facility] documented in this encounter Plan of Treatment Upcoming Encounters Date Type Department Care Team (Latest Contact Info) Description 02/16/2025 9:15 AM EDT Anticoagulation - Warfarin [facility] [address] [place] [address] 03/09/2025 3:30 PM EDT Ancillary Procedure [facility] [address] [place] [address] 07/24/2025 2:40 PM EDT Office Visit [facility] [address] [place] [address] Demetrio Alexander NP [address] [place] [address] Scheduled Orders Name Type Priority Associated Diagnoses [...] ECG 12 lead (01/20/2025 1:38 PM EST) Ventricular Rate ECG 58 BPM GEMUSE Atrial Rate 340 BPM GEMUSE QRS Duration 80 ms GEMUSE Q-T Interval 406 ms GEMUSE QTc 398 ms GEMUSE R [place] 91 degrees GEMUSE T [place] 34 degrees GEMUSE ECG Interpretation Atrial fibrillation with slow ventricular response Rightward axis Poor R wave progression Abnormal ECG When compared with ECG of 20-FEB-2020 11:58, No significant changes are noted Confirmed by ASHLEY PHILLIPS ([id number]) on 01/28/2025 5:47:50 PM GEMUSE 01/20/2025 10:5 3 AM EST 01/28/2025 5:47 PM EST Demetrio Alexander NP ECG ORDERABLES Edited Result - Final GEMUSE documented in this encounter Visit Diagnoses Diagnosis Atrial fibrillation, unspecified type (CMS/HCC)- Primary Hyperlipidemia, unspecified hyperlipidemia type Primary hypertension Unspecified essential hypertension documented in this encounter Discontinued Medications Medication Sig Discontinue Reason Start Date End Da te pravastatin (PRAVACHOL) 20 mg tablet TAKE 1 TABLET BY MOUTH EVERY DAY 10/21/2024 01/20/2025 documented as of this encounter Care Teams Retail Special Event Associate Relationship Specialty Start Date End Date Gabriele Roberson MD [address] [place] [address] PCP - General Internal Medicine 10/13/24 documented as of this encounter
--- OUTSIDE RECORDS SUMMARY | 2025-01-29 10:15 | XMS_ITS | Encounter Summary ---
Author Organization [facility] Address [address] [place] [address] Care Team Providers Care Reel Tender Name Role Phone Gabriele Roberson MD Primary Care Provider [phone] Reason for Visit * Reason Onset Date Comments Lab Results 01/28/2025 Encounter Details Date Type Department Care Team ([facility] st Contact Info) Description 01/28/2025 Telephone [facility] - [facility] [address] [facility] [address] [place] [address] Susi Glover MA Lab Results Social History Tobacco Use Types Packs/Day Years [...] as of this encounter Progress Notes * Susi Glover MA - 01/28/2025 2:09 PM EST The patient wanted you to know that he had a PET scan of the brain on 01/08/25 and it suggests the early stages of Alzheimer's. He will be following up about this tomorrow but just wanted you to be aware of the findings. The PET scan is in the chart I called and spoke with the patient and he is aware of results. He will repeat fasting labs in 3 months. He will use a [facility] lab, order entered * Susi Glover MA - 01/28/2025 2:07 PM EST ----- Message from Wagner Alexander NP sent at 01/23/2025 4:23 PM EST ----- Can we call the patient let him know that his cholesterol is improved. I would like him to continuetaking the pravastatin 40 mg p.o. daily and redraw another cholesterol in 3 months. As a reminder Iwould like his LDL under 100 but closer to 70. documented in this encounter Plan of Treatment Upcoming Encounters Date Type Department Care Team (Latest Contact Info) Description 02/16/2025 9:15 AM EDT Anticoagulation - Warfarin Visit [facility] - [address] [address] 03/09/2025 3:30 PM EDT Ancillary Procedure [facility] [address] [facility] [address] [place] [address] 07/24/2025 2:40 PM EDT Office Visit [facility] - [facility] [address] [facility] [address] [place] [address] Demetrio Alexander NP [address] [place] [address] Scheduled Orders Name Type Priority Associated Diagnoses Orde r Schedule Lipid panel with reflex to direct LDL Lab Routine Hyperlipidemia, unspecified hyperlipidemia type 1 Occurrences starting 01/28/2025 until 01/28/2026 documented as of this encounter Visit Diagnoses Diagnosis Hyperlipidemia, unspecified hyperlipidemia type- Primary documented in this encounter Care Teams Reel Tender Relationship Specialty Start Date End Date Gabriele Roberson MD [address] [place] [address] PCP - General Internal Medicine 10/13/24 documented as of this encounter
--- OUTSIDE RECORDS SUMMARY | 2025-01-29 10:15 | XMS_ITS | Encounter Summary ---
Author Organization [facility] Address [address] [place] [address] Care Team Providers Care Public Information Specialist Name Role Phone Gabriele Roberson MD Primary Care Provider [phone] Encounter Details Date Type Department Care Team (Latest Contact Info) Description 01/08/2025 9:30 AM EST Anticoagulation - Warfarin Visit [facility] [address] [place] [phone] Atrial fibrillation, unspecified type (CMS/HCC) (Primary Dx) [...] Visit [facility] [address] [place] [phone] 03/09/2025 3:30 PM EDT Ancillary Procedure [facility] - [address] [place] [address] 07/24/2025 2:40 PM EDT Office Visit [facility] - [address] [place] [address] Demetrio Alexander NP [address] [place] [address] documented as of this encounter Procedures Procedure [...] Primary documented in this encounter Care Teams Public Information Specialist Relationship Specialty Start Date End Date Gabriele Roberson MD [address] [place] [address] PCP - General Internal Medicine 10/13/24 documented as of this encounter
--- OUTSIDE RECORDS SUMMARY | 2025-01-29 10:15 | XMS_ITS | Encounter Summary ---
Author Organization [facility] Address [address] [place] [address] Care Team Providers Care Java Manager Name Role Phone Gabriele Roberson MD Primary Care Provider [phone] Encounter Details Date Type Department Care Team (Latest Contact Info) Description 01/26/2025 9:15 AM EST Anticoagulation - Warfarin Visit [facility] [address] [place] [phone] Atrial fibrillation, unspecified type (CMS/HCC) (Primary Dx) [...] Visit [facility] [address] [place] [phone] 03/09/2025 3:30 PM EDT Ancillary Procedure [facility] - [address] [place] [address] 07/24/2025 2:40 PM EDT Office Visit [facility] - [address] [place] [address] Demetrio Alexander NP [address] [place] [address] documented as of this encounter Procedures Procedure Name Priority Date/Time Associated Diagnosis Comments POC PROTIME INR BLOOD Routine 01/26/2025 9:11 AM EST Atrial fibrillation, unspecified type (CMS/HCC) documented in this encounter Results * POC Protime INR Blood (01/26/2025 9:11 AM EST) Lot Number INR POC 2.2 Prothrombin Time POC Exp Date Blood 01/26/2025 9:11 AM EST us Gabriele Roberson MD POINT OF CARE TEST ENTER/EDIT ORDERABLES Final Result documented in this encounter Visit Diagnoses Diagnosis Atrial fibrillation, unspecified type (CMS/HCC)- Primary documented in this encounter Care Teams Java Manager Relationship Specialty Start Date End Date Gabriele Roberson MD [address] [place] [address] PCP - General Internal Medicine 10/13/24 documented as of this encounter
--- OUTSIDE RECORDS SUMMARY | 2025-01-29 10:15 | XMS_ITS | Encounter Summary ---
Author Organization [facility] Address [address] [place] [address] Care Team Providers Care Professional Services Specialist Name Role Phone Gabriele Roberson MD Primary Care Provider [phone] Encounter Details Date Type Department Care Team (Latest Contact Info) Description 12/11/2024 9:00 AM EST Anticoagulation - Warfarin Visit [facility] [address] [place] [phone] Atrial fibrillation, unspecified type (CMS/HCC) (Primary Dx) [...] Visit [facility] [address] [place] [phone] 03/09/2025 3:30 PM EDT Ancillary Procedure [facility] - [address] [place] [address] 07/24/2025 2:40 PM EDT Office Visit [facility] - [address] [place] [address] Demetrio Alexander NP [address] [place] [address] documented as of this encounter Procedures Procedure [...] Primary documented in this encounter Care Teams Professional Services Specialist Relationship Specialty Start Date End Date Gabriele Roberson MD [address] [place] [address] PCP - General Internal Medicine 10/13/24 documented as of this encounter
--- OUTSIDE RECORDS SUMMARY | 2025-01-29 10:15 | XMS_ITS | Encounter Summary ---
Author Organization [facility] Address [address] [place] [address] Care Team Providers Care Podiatric Aide Name Role Phone Gabriele Roberson MD Primary Care Provider [phone] Reason for Referral * Imaging (Routine) - Pending Review Specialty Diagnoses / Procedures Referred By Srikanth angel Referred To Contact Radiology Diagnoses Other symptoms and signs involving cognitive functions and awareness Procedures PET CT Limited Area Initial Tonia Coe MD [facility] [address] [place] [address] Phone: tel: fax: [facility] Referral ID Status Reason Start Date Expiration Date V isits Requested Visits Authorized [id number] Pending Review 01/08/2025 01/08/2026 1 1 Reason for Visit * Imaging (Routine) - Pending Review Specialty Diagnoses / Procedures Referred By Srikanth angel Referred To Contact Radiology Diagnoses Other symptoms and signs involving cognitive functions and awareness Procedures PET CT Limited Area Initial Tonia Coe MD [facility] [address] [place] [address] Phone: tel: fax: [facility] Referral ID Status Reason Start Date Expiration Date V isits Requested Visits Authorized [id number] Pending Review 01/08/2025 01/08/2026 1 1 Encounter Details Date Type Department Care Team (Latest Contact Info) Description 01/09/2025 2:00 PM EST - 01/09/2025 11:59 PM EST Hospital Encounter [facility] PET Scan [address] [place] [address] Other symptoms and signs involving [...] Anticoagulation - [facility]farin [facility] [address] [place] [phone] 03/09/2025 3:30 PM EDT Ancillary Procedure [facility] - [address] [place] [address] 07/24/2025 2:40 PM EDT Office Visit [facility] - [address] [place] [address] Demetrio Alexander NP [address] [place] [address] documented as of this encounter Procedures Procedure Name Priority Date/Time Associated Diagnosis Comments PET CT LIMITED AREA INITIAL Routine 01/09/2025 3:10 PM EST Other symptoms and signs involving cognitive functions and awareness documented in this encounter Results * PET CT Limited Area Initial (01/09/2025 3:10 PM EST) Anatomical Region Laterality Modality Body Radiographic Bela ging 01/12/2025 6:15 AM EST Impressions 01/23/2025 3:54 AM EST Positive study. This scan was interpreted using consensus imaging with another board certified radiologist, Dr. Fenton. Please note: The CT was acquired at a low radiation dose settings. ??The images are of nondiagnostic quality and used solely for purposes of attenuation correction and slice localization for the PET scan. ??If a diagnostic CT study is desired it must be ordered separately. -------- FINAL REPORT -------- Dictated By: Violeat Stuart Dictated Date: 01/12/2025 06:15 ET Assigned Physician: Violeta Stuart Reviewed and Electronically Signed By: Violeta Stuart Signed Date: 01/23/2025 03:54 ET Workstation ID: [id number] Transcribed By: Self Edit Transcribed Date: 01/12/2025 06:17 ET Narrative 01/23/2025 3:54 AM EST INDICATION: other signs and symptoms involving cognitive functions and awareness TECHNIQUE: F-18 Amyvid PET imaging was performed from of the head in a single acquisition with data set reconstructed in axial, coronal, and sagittal planes at the computer workstation with fused data from both the PET imaging study and attenuation correction CT. The CT portion of the examination was done strictly for attenuation correction and is not a true diagnostic CT examination. DLP: ??1187 mGy-cm Radiopharmaceutical: 10.0 mCi of F-18 Florbetapir IV. COMPARISON: Correlation is made with outside brain MRI dated September 2022 FINDINGS: HEAD AND NECK: Loss of garces-white matter differentiation. Prominence of the cerebral sulci and extra-axial CSF containing spaces in keeping with cerebral volume loss. ??Scattered white matter hypodensities which may represent microangiopathic white matter change. Procedure Note Violeta Stuart MD - 01/23/2025 INDICATION: other signs and symptoms involving cognitive functions andawareness TECHNIQUE: F-18 Amyvid PET imaging was performed from of the head in asingle acquisition with data set reconstructed in axial, coronal, andsagittal planes at the computer workstation with fused data from both thePET imaging study and attenuation correction CT. The CT portion of theexamination was done strictly for attenuation correction and is not a truediagnostic CT examination. DLP: 1187 mGy-cm Radiopharmaceutical: 10.0 mCi of F-18 Florbetapir IV. COMPARISON: Correlation is made with outside brain MRI dated September2022 FINDINGS: HEAD AND NECK: Loss of garces-white matter differentiation. Prominence of the cerebral sulci and extra-axial CSF containing spaces inkeeping with cerebral volume loss. Scattered white matter hypodensitieswhich may represent microangiopathic white matter change. IMPRESSION: Positive study. This scan was interpreted using consensus imaging with another boardcertified radiologist, Dr. Fenton. Please note: The CT was acquired at a low radiation dose settings. The images are ofnondiagnostic quality and used solely for purposes of attenuationcorrection and slice localization for the PET scan. If a diagnostic CTstudy is desired it must be ordered separately. -------- FINAL REPORT -------- Dictated By: Violeta Stuart Dictated Date: 01/12/2025 06:15 ET Assigned Physician: Violeta Stuart Reviewed and Electronically Signed By: Violeta Stuart Signed Date: 01/23/2025 03:54 ET Workstation ID: [id number] Transcribed By: Self Edit Transcribed Date: 01/12/2025 06:17 ET Tonia Welsh [place] [facility] IMG NM PROCEDURES Final Result documented in this encounter Visit Diagnoses Diagnosis Other symptoms [...] 01/09/2025 documented in this encounter Care Teams Podiatric Aide Relationship Specialty Start Date End Date Gabriele Roberson MD [address] [place] [address] PCP - General Internal Medicine 10/13/24 documented as of this encounter
--- OUTSIDE RECORDS SUMMARY | 2025-01-29 10:16 | XMS_ITS | Clinical Summary ---
Author Organization [facility] [address] [place] [address] [place] [phone] Phone Care Team Providers Care Nuclear Test Technician Name Role Phone Gabriele Roberson MD Primary Care Provider [phone] Allergies No known active allergies Medications APPLE [...] Active Problems Problem Noted Date Diagnosed Date [facility] current use of anticoagulant Hypertension 06/13/2023 Overview [...] warfarin for CVA prophylaxis. Patient has a [id number] score of a 2 and should remain anticoagulated. I am also going to be updating an echocardiogram. Orders: ECG 12 lead Transthoracic echocardiogram (TTE) complete with PRN contrast, bubble, strain, and 3D order panel; Future Anxiety 05/03/2012 Depression 05/03/2012 Polio 07/12/2009 Overview (09/12/2024): Scoliosis Encounters Date Type Department Care Team Description 01/28/2025 Telephone [facility] Cardiology [facility] [address] [facility] [address] [place] [address] Susi Glover MA Lab Results 01/26/2025 9:15 AM EST Anticoagulation - [facility]in [facility] [address] [place] [phone] Atrial fibrillation, unspecified type (CMS/HCC) (Primary Dx) 01/21/2025 Telephone Coumadin [facility] - [address] [phone] Yumi Castillo LPN Request For Order(s) (Inr lab) 01/20/2025 10:40 AM EST Office Visit [facility] Cardiology [facility] [address] [facility] [address] [place] [address] Demetrio Alexander NP Atrial fibrillation, unspecified type (CMS/HCC) (Primary Dx); Hyperlipidemia, unspecified hyperlipidemia type; Primary hypertension 01/09/2025 2:00 PM EST - 01/09/2025 11:59 PM EST Hospital Encounter [facility] PET Scan [address] [place] [phone] Other symptoms and signs involving cognitive functions and awareness Discharge Disposition: Home or Self Care 01/08/2025 9:30 AM EST Anticoagulation - [facility]in [facility] [address] [place] [phone] Atrial fibrillation, unspecified type (CMS/HCC) (Primary Dx) 12/11/2024 9:00 AM EST [facility] - [facility] [address] Atrial fibrillation, unspecified type (CMS/HCC) (Primary Dx) 11/13/2024 9:00 AM EST Anticoagulation - Warfarin [facility] [address] [place] [address] Atrial fibrillation, unspecified type (CMS/HCC) (Primary Dx) from Last 3 Months Immunizations Name Administration Dates Next Due Influenza trivalent, 0.5mL (Fluad) 65yo and olde r 10/16/2023 Influenza trivalent, 0.5mL, preservative free (Fluarix; FluLaval; Fluzone) ages 6mo and older (Afluria) 3 years and older 09/21/2005 [facility] SARS-CoV-2 COVID-19, mRNA, LNP-S, preservative free 02/24/2021,02/03/2021 [...] TONSILLECTOMY PROCEDURE: HISTORICAL TONSILLECTOMY ESOPHAGOGASTRODUODENOSCOPY 10/19/08 PROCEDURE: AL ESOPHAGOGASTRODUODENOSCOPY TRANSORAL DIAGNOSTIC; COMMENT: mild erosive esophagitis COLONOSCOPY 12/29 PROCEDURE: AL COLONOSCOPY STOMA DX INCLUDING COLLJ SPEC SPX; COMMENT: Andrés; deyanira 12 y COLONOSCOPY W/ POLYPECTOMY 07/04/13 PROCEDURE: AL COLSC FLX W/RMVL OF TUMOR POLYP LESION [...] Visit [facility] [address] [place] [address] 03/09/2025 3:30 PM EDT Ancillary Procedure [facility] [address] [facility] [address] [place] [address] 07/24/2025 2:40 PM EDT Office Visit [facility] [address] [facility] [address] [place] [address] Demetrio Alexander NP [address] [place] [address] Health Maintenance Due Date Last Done Comments [...] AM EST Atrial fibrillation, unspecified type (CMS/HCC) ECG 12-LEAD Routine 01/20/2025 1:38 PM EST Atrial fibrillation, unspecified type (CMS/HCC) LIPID PANEL WITH REFLEX TO DIRECT LDL Routine 01/20/2025 11:37 AM EST Hyperlipemia PET CT LIMITED AREA INITIAL Routine 01/09/2025 3:10 PM EST Other symptoms and signs involving cognitive functions and awareness POC PROTIME INR BLOOD Routine 01/08/2025 9:36 AM EST Atrial fibrillation, unspecified type (CMS/HCC) POC PROTIME INR BLOOD Routine 12/11/2024 10:52 AM EST Atrial fibrillation, unspecified type (CMS/HCC) BASIC METABOLIC PANEL Routine 11/13/2024 9:36 AM EST DAVIDE (acute kidney injury) (CMS/HCC) POC PROTIME INR BLOOD Routine 11/13/2024 9:12 AM EST Atrial fibrillation, unspecified type (CMS/HCC) HM COLONOSCOPY Routine 05/09/2019 from Last 3 Months or Most Recently Relevant to Health Maintenance Results * POC Protime INR Blood (01/26/2025 9:11 AM EST) Only the most recent of4 resultswithin the time period is included. Lot Number INR POC 2.2 Prothrombin Time POC Exp Date Blood 01/26/2025 9:11 AM EST Gabriele Roberson MD POINT OF CARE TEST ENTER/EDIT ORDERABLES Final Result * ECG 12 lead (01/20/2025 1:38 PM EST) Ventricular Rate ECG 58 BPM GEMUSE Atrial Rate 340 BPM GEMUSE QRS Duration 80 ms GEMUSE Q-T Interval 406 ms GEMUSE QTc 398 ms GEMUSE R Webster 91 degrees GEMUSE T Webster 34 degrees GEMUSE ECG Interpretation Atrial fibrillation with slow ventricular response Rightward axis Poor R wave progression Abnormal ECG When compared with ECG of 20-FEB-2020 11:58, No significant changes are noted Confirmed by PRASAD PHILLIPS ([id number]) on 01/28/2025 5:47:50 PM GEMUSE 01/20/2025 10:5 3 AM EST 01/28/2025 5:47 PM EST us Demetrio Alexander NP ECG ORDERABLES Edited Result - Final MAMADOU * (ABNORMAL) Lipid panel with reflex to direct LDL (01/20/2025 11:37 AM EST) Cholesterol 160 0 - 200 mg/dL LAB CHEMISTRY METHOD 01/20/2025 3:22 PM EST [facility] Triglycerides 117 0 - 150 mg/dL LAB CHEMISTRY METHOD 01/20/2025 3:22 PM EST [facility] HDL 35(L) >=40 mg/dL LAB CHEMISTRY METHOD 01/20/2025 3:22 PM EST [facility] LDL Calculated 102(H) 0 - 100 mg/dL LAB CHEMISTRY METHOD 01/20/2025 3:22 PM EST [facility] VLDL Cholesterol Mike 23.4 mg/dL LAB CHEMISTRY METHOD 01/20/2025 3:22 PM EST [facility] Non HDL Chol. (LDL+VLDL) 125 <145 mg/dL LAB CHEMISTRY METHOD 01/20/2025 3:22 PM EST [facility] Chol/HDL Ratio 4.6(H) 0.0 - 4.4 LAB CHEMISTRY METHOD 01/20/2025 3:22 PM EST [facility] Blood Venous blood specimen / Unknown Venipuncture / Unknown 01/20/2025 11:37 AM EST 01/20/2025 11:37 AM EST us Demetrio Alexander NP LAB BLOOD ORDERABLES Final Resul t [facility] [address] [place] [address], [place] [phone] * PET CT Limited Area Initial (01/09/2025 [...] Signed Date: 01/23/2025 03:54 ET Workstation ID: [id number] Transcribed By: Self Edit Transcribed Date: 01/12/2025 [...] Signed Date: 01/23/2025 03:54 ET Workstation ID: [id number] Transcribed By: Self Edit Transcribed Date: 01/12/2025 06:17 ET Tonia Coe MD [facility] PROCEDURES Final Result * Basic metabolic panel (11/13/2024 9:36 AM EST) Sodium 139 133 - 145 mmol/L LAB CHEMISTRY METHOD 11/13/2024 12:44 PM EST [facility] Potassium 4.8 3.5 - 5.5 mmol/L LAB CHEMISTRY METHOD 11/13/2024 12:44 PM EST [facility] Chloride 105 96 - 110 mmol/L LAB CHEMISTRY METHOD 11/13/2024 12:44 PM EST [facility] CO2 26 21 - 32 mmol/L LAB CHEMISTRY METHOD 11/13/2024 12:44 PM [facility] Anion Gap 8 3 - 11 LAB CHEMISTRY METHOD 11/13/2024 12:44 PM [facility] Glucose 95 70 - 100 mg/dL LAB CHEMISTRY METHOD 11/13/2024 12:44 PM [facility] BUN 19 5 - 25 mg/dL LAB CHEMISTRY METHOD 11/13/2024 12:44 PM [facility] Creatinine 1.22 0.70 - 1.30 mg/dL LAB CHEMISTRY METHOD 11/13/2024 12:44 PM [facility] eGFR 63 >=60 mL/min/1. 73m2 LAB CHEMISTRY METHOD 11/13/2024 12:44 PM [facility] Comment:Calculation based on the??Chronic Kidney Disease Epidemiology Collaboration (CKD-EPI) equation refit??without adjustment for race. BUN/Creatinine Ratio 15.6 LAB CHEMISTRY METHOD 11/13/2024 12:44 PM [facility] Calcium 9.2 8.5 - 10.5 mg/dL LAB CHEMISTRY METHOD 11/13/2024 12:44 PM [facility] Blood Venous blood specimen / Unknown Venipuncture / Unknown 11/13/2024 9:36 AM EST 11/13/2024 9:36 AM EST Gabriele Roberson MD LAB BLOOD ORDERABLES Final Res ult [facility] [address] [place] [address], * Colonoscopy (05/09/2019) Colonoscopy No Interpretation , Abstracted Anatomical Region Laterality Modality Other Historical Provider HEALTH MAINTENANCE Final Result from Last 3 Months or Most Recently Relevant to Health Maintenance Insurance [employer] - [place] MEDICARE ADVANTAGE Care Teams Nuclear Test Technician Relationship Specialty Start Date End Date Gabriele Roberson MD [address] [place] [id number] PCP - General Internal Medicine 10/13/24
--- OUTSIDE RECORDS SUMMARY | 2025-01-29 10:16 | XMS_ITS | Encounter Summary ---
Author Organization [facility] Address [address] [place] [address] Care Team Providers Care Pantograph I Engraver Name Role Phone Gabriele Roberson MD Primary Care Provider [phone] Reason for Visit * Reason Onset Date Comments Request For Order(s) 01/21/2025 Inr lab Encounter Details Date Type Department Care Team (Late st Contact Info) Description 01/21/2025 Telephone [facility] [address] [place] [address] Yumi Castillo LPN Request For Order(s) (Inr [...] Visit [facility] [address] [place] [address] 03/09/2025 3:30 PM EDT Ancillary Procedure [facility] - [address] [place] [address] 07/24/2025 2:40 PM EDT Office Visit [facility] - [address] [address] Demetrio Alexander NP [address] [place] [address] Scheduled Orders Name Type Priority Associated Diagnoses Orde r Schedule Prothrombin time with INR Lab Routine 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
== END 2025-01-29 10:33 | disposition home or self-care (01) ==
PROVIDERS: PCP Internal Medicine; Visit Provider Physician Assistant Medical
DX: G47.10 Hypersomnia, unspecified (principal); R47.89 Other speech disturbances; R41.89 Other symptoms and signs involving cognitive functions and awareness; F32.A Depression, unspecified
CPT/HCPCS: 99214; G2211

== ENCOUNTER → 2025-01-29 09:15 | Outpatient (BNVA) | payer MEDICARE, SELFPAY | PROVIDERS: PCP Internal Medicine; Visit Provider Physician Assistant Medical | DX: G47.19 Other hypersomnia (principal); R47.89 Other speech disturbances; R41.89 Other symptoms and signs involving cognitive functions and awareness; R53.83 Other fatigue; F32.A Depression, unspecified | CPT/HCPCS: 99212 ==

== ENCOUNTER 2025-02-20 09:02 | Outpatient (REF) | payer MEDICARE, SELFPAY ==
[2025-02-20 09:39] LABS: Hematocrit 42.7 % (42.0-52.0); Hemoglobin 14.8 g/dl (14.0-18.0); Mean Corpuscular HGB Conc 34.7 g/dl (31.0-36.0); Mean Corpuscular Hemoglobin 31.5 pg (27.0-33.0); Mean Corpuscular Volume 90.9 fL (80.0-98.0); Mean Platelet Volume 10.4 fL (9.4-12.4); Platelet Count 217 X10*3/uL (160-400); Red Cell Distribution Width 13.6 % (11.0-16.0); White Blood Count 8.5 X10*3/uL (4.8-10.8)
[2025-02-20 09:45] LABS: Estimated Average Glucose 117 mg/dL; Hemoglobin A1C 149.3334 umol/L; Hemoglobin A1c % 5.7 % (<6.0)
[2025-02-20 10:02] LABS: Alanine Aminotransferase 33 U/L (0-40); Albumin Level 4.2 g/dL (3.5-5.0); Alkaline Phosphatase 60 U/L (39-117); Anion Gap 9 (12-20); Aspartate Amino Transferase 29 U/L (5-37); Bilirubin Total 0.7 mg/dL (0.0-1.0); Blood Urea Nitrogen 21 mg/dL (9-16); Calcium 9.4 mg/dL (8.4-10.2); Carbon Dioxide 26 mmol/L (22-29); Chloride 107 mmol/L (96-108); Estimated Glomerular Filt Rate > 60; Glucose Random 103 mg/dL (60-115); Iron 70 mcg/dL (45-160); Percent Iron Saturation 24 % (15-50); Potassium 4.2 mmol/L (3.3-5.1); Sodium 138 mmol/L (135-145); Total Iron Binding Capacity 294 mcg/dL (228-428); Total Protein 7.2 g/dL (6.5-8.0); Unsaturated Iron Binding 224 ug/dL
[2025-02-20 10:17] LABS: Ferritin 213 ng/mL (20-250); TSH reflex Free T4 2.36 uIU/mL (0.32-4.0); Vitamin D 25-OH Total 41.7 ng/mL (>30)
[2025-02-20 10:29] LABS: Folate 8.7 ng/mL (> or = 4.0); Vitamin B12 1805 pg/mL (200-900)
[2025-02-23 17:05] LABS: Homocysteine 11.7 umol/L (<11.4)
[2025-02-25 23:32] LABS: Methylmalonic Acid 145 nmol/L (69-390)
== END 2025-02-20 09:03 | disposition home or self-care (01) ==
LOC: HO.LAB 09:02
PROVIDERS: PCP Internal Medicine; Visit Provider Physician Assistant Medical
DX: R41.89 Other symptoms and signs involving cognitive functions and awareness (principal); R47.89 Other speech disturbances; R53.83 Other fatigue; G47.9 Sleep disorder, unspecified; F09 Unspecified mental disorder due to known physiological condition; Z13.1 Encounter for screening for diabetes mellitus; Z13.6 Encounter for screening for cardiovascular disorders
CPT/HCPCS: 80053; 82306; 82542; 82607; 82728; 82746; 83036; 83090; 83540; 83921; 84443; 85027

== ENCOUNTER → 2025-04-15 15:55 | Outpatient (REF) | payer MEDICARE, SELFPAY ==
--- OUTSIDE RECORDS SUMMARY | 2025-04-15 15:57 | XMS_ITS | Clinical Summary ---
Author Organization [facility] [address] [place] [address] [place] [phone] Phone Care Team Providers Care Population Geneticist Name Role Phone Gabriele Roberson MD Primary Care Provider [phone] Allergies No known active allergies Medications APPLE CIDER VINEGAR ORAL Take by mouth. Ac tive CYANOCOBALAMIN, VITAMIN B-12, ORAL Take by mouth. Activ e citalopram (CeleXA) 10 mg tablet Take 1 tablet (10 mg total) by mouth 1 (one) time each day. 09/11/20 22 Active magnesium oxide (MAG-OX) 400 mg magnesium tablet Take 1 tablet (400 mg total) by mouth 1 (one) time each day. Active OMEGA-3 FATTY ACIDS-FISH OIL ORAL Take by mouth. Activ e warfarin (COUMADIN) 5 mg tablet Take 1-1.5 tablets (5-7.5 mg total) by mouth 1 (one) time each day with dinner. 135 tablet 1 01/22/20 25 Active pravastatin (PRAVACHOL) 40 mg tablet Take 1 tablet (40 mg total) by mouth at bedtime. 30 each 11 01/22/20 25 026 Active albuterol HFA (ProAir HFA) 90 mcg/actuation inhaler Inhale 2 puffs by mouth every 4 (four) hours if needed for wheezing or shortness of breath. 8.5 g 03/16/20 25 026 Active inhalational spacing device inhaler Used as directed. 1 each 03/16/20 25 026 Active pseudoephedrine (Sudafed) 30 mg tablet Take 1 tablet (30 mg total) by mouth every 4 (four) hours if needed for congestion for up to 10 days. 30 tablet 03/25/20 25 Active fluticasone propionate (FLONASE) 50 mcg/actuation nasal spray Administer 2 sprays into each nostril 1 (one) time each day. Shake gently. Before first use, prime pump. After use, clean tip and replace cap. 16 g 5 03/25/20 25 026 Active ciprofloxacin-d exAMETHasone (CIPRODEX) otic suspension Administer 4 drops into each ear 2 (two) times a day. 30 mL 03/25/20 25 025 Active amLODIPine (NORVASC) 10 mg tabletIndicatio ns:Essential (primary) hypertension,Ch ronic atrial fibrillation, unspecified (CMS/HCC V24, CMS/HCC V28) TAKE 1 TABLET BY MOUTH EVERY DAY 90 tablet 2 04/13/20 25 Active metoprolol succinate (TOPROL-XL) 50 mg 24 hr tablet TAKE 1 TABLET BY MOUTH EVERY DAY 90 tablet 1 04/15/20 25 Active amLODIPine (NORVASC) 10 mg tabletIndicatio ns:Essential (primary) hypertension,Ch ronic atrial fibrillation, unspecified (CMS/HCC V24, CMS/HCC V28) TAKE 1 TABLET BY MOUTH EVERY DAY 90 tablet 01/16/20 25 025 Discontinued metoprolol succinate (TOPROL-XL) 50 mg 24 hr tablet TAKE 1 TABLET BY MOUTH EVERY DAY 90 tablet 01/16/20 25 025 Discontinued amoxicillin-cla vulanate (AUGMENTIN) 875-125 mg per tablet Take 1 tablet by mouth 2 (two) times a day for 10 days. 20 each 03/16/20 25 025 carbamide peroxide (DEBROX) 6.5 % otic solution Administer 5-10 drops into each ear 2 (two) times a day for 8 days. 15 mL 03/16/20 25 025 Active Problems Problem Noted Date Diagnosed Date custodial current use of anticoagulant 5 Hypertension 06/13/2023 Overview (09/12/2024): Last Assessment & [...] GERD (gastroesophageal reflux disease) 4 Atrial fibrillation (CMS/HCC V24, CMS/HCC V28) 0 07/04/2013 Overview (09/12/2024): -Incidentally noted during a [...] warfarin for CVA prophylaxis. Patient has a [id number] score of a 2 and should remain anticoagulated. I am also going to be updating an echocardiogram. Orders: ECG 12 lead Transthoracic echocardiogram (TTE) complete with PRN contrast, bubble, strain, and 3D order panel; Future Anxiety 05/03/2012 Depression 05/03/2012 Polio 07/12/2009 Overview (09/12/2024): Scoliosis Encounters Date Type Department Care Team Description 04/02/2025 3:15 PM EDT [facility]tico[facility] - [facility] [address] [facility] [phone] Atrial fibrillation, unspecified type (CMS/HCC V24, CMS/HCC V28) (Primary Dx) 03/26/2025 Telephone [facility] [place] [address] Rosa M Ascencio MA 03/25/2025 2:30 PM EDT Office [facility] [address] [place] [address] Chrissy Tapia, ÓSCAR Left otitis media with effusion (Primary Dx); Acute otitis media, unspecified otitis media type; Acute otitis externa of right ear, unspecified type 03/23/2025 Telephone [facility] - [address] [place] [phone] Demetrio Alexander NP ? ? Lipid panel; Future (?? Lipid panel; Future) 03/19/2025 3:15 PM EDT Anticoagulation - Warfarin Visit [facility] - [facility] [address] [place], [place] [phone] Atrial fibrillation, unspecified type (CMS/HCC V24, CMS/HCC V28) (Primary Dx) 03/16/2025 9:15 AM EDT Anticoagulation - Warfarin Visit [facility] - [facility] [address] [place], [place] [address], [place] [phone] Atrial fibrillation, unspecified type (CMS/HCC V24, CMS/HCC V28) (Primary Dx) 03/16/2025 8:47 AM EDT - 03/16/2025 11:59 PM EDT Hospital En[facility] [address] [place] [address] [phone] Discharge Disposition: Home or Self Care 03/16/2025 8:30 AM EDT [facility] [address] [place], [place] [address], [place] [phone] Chrissy Tapia NP Viral upper respiratory tract infection (Primary Dx) 03/16/2025 Telephone [facility] [address] [place] [address] Gabriele Roberson MD Appointment 03/09/2025 3:30 PM EDT Ancillary Procedure [facility] - [address] [place] [phone] Atrial fibrillation, unspecified type (CMS/HCC V24, CMS/HCC V28) 02/16/2025 9:15 AM EDT Anticoagulation - Warfarin Visit [facility] - [facility] [address] [place], [place] [phone] Atrial fibrillation, unspecified type (CMS/HCC V24, CMS/HCC V28) (Primary Dx) 01/28/2025 Telephone [facility] [address] [facility] [address] [place] [address] Susi Glover MA Lab Results 01/26/2025 9:15 AM EST Anticoagulation - [facility]farin [facility] [place] [address] Atrial fibrillation, unspecified type (CMS/HCC V24, CMS/HCC V28) (Primary Dx) 01/21/2025 Telephone Coumadin Clinic - [address] [address] Yumi Castillo LPN Request For Order(s) (Inr lab) 01/20/2025 10:40 AM EST Office Visit [facility] [address] [facility] [address] [place] [address] Demetrio Alexander NP Atrial fibrillation, unspecified type (CMS/HCC V24, CMS/HCC V28) (Primary Dx); Hyperlipidemia, unspecified hyperlipidemia type; Primary hypertension from Last 3 Months Immunizations Name Administration Dates Next Due Influenza trivalent, 0.5mL (Fluad) 65yo and olde r 10/16/2023 Influenza trivalent, 0.5mL, preservative free (Fluarix; FluLaval; Fluzone) ages 6mo and older (Afluria) 3 years and older 09/21/2005 Evtron SARS-CoV-2 COVID-19, mRNA, LNP-S, preservative free 02/24/2021,02/03/2021 [...] TONSILLECTOMY PROCEDURE: HISTORICAL TONSILLECTOMY ESOPHAGOGASTRODUODENOSCOPY 10/19/08 PROCEDURE: MS ESOPHAGOGASTRODUODENOSCOPY TRANSORAL DIAGNOSTIC; COMMENT: mild erosive esophagitis COLONOSCOPY 12/29 PROCEDURE: MS COLONOSCOPY STOMA DX INCLUDING COLLJ SPEC SPX; COMMENT: Bowen; rpt 10 y COLONOSCOPY W/ POLYPECTOMY 07/04/13 PROCEDURE: MS COLSC FLX W/RMVL OF TUMOR POLYP LESION [...] Cigarettes Q uit: 05/28/2008 Smokeless Tobacco: Never Tobacco Cessation:Counseling Given: Not Answered Alcohol Use Standard Drinks/Week Comments No 0 (1 standard drink = 0.6 oz pur e alcohol) Sex and Gender Information Value Date Recorded Sex Assigned at Not on file Legal Sex Male 6:43 AM EST Gender Identity Not on file Sexual Orientation Not on file Obstetrics History Last Filed Vital Signs Vital Sign Reading Time Taken Comments Blood Pressure 101/69 03/25/2025 2:21 PM EDT aut o cuff Pulse 76 03/25/2025 2:21 PM EDT auto cuff Temperature 35.8 ??C (96.5 ??F) 03/25/2025 2:21 PM ED T Respiratory Rate 22 03/16/2025 8:28 AM EDT Oxygen Saturation 96% 03/16/2025 8:28 AM EDT Inhaled Oxygen Concentration - - Weight 117 kg (257 lb 11.2 oz) 03/25/2025 2:21 P M EDT Height 193 cm (6' 4 ) 03/09/2025 4:24 PM EDT Body Mass Index 31.37 03/09/2025 4:24 PM EDT Plan of Treatment Upcoming Encounters Date Type Department Care Team (Latest Contact Info) Description 04/30/2025 3:15 PM EDT Anticoagulation - Warfarin Visit [facility] - [facility] [address] [place] [phone] 07/24/2025 2:40 PM EDT Office Visit [facility] [address] [facility] [address] [place] [phone] Demetrio Alexander NP [address] [place] [address] Health Maintenance Due Date Last Done Comments Zoster Vaccines (2 of 3) 05/24/2022 03/29/2022, 10/27 Abdominal Aortic Aneurysm (AAA) Screen 11/04/2022 Depression Screening 11/04/2022 Falls Risk Assessment 11/04/2022 Hepatitis C Screening 11/04/2022 Social Influencers of Health Screening 11/04/2022 Medicare Annual Wellness Visit 05/02/2024 05/02/2023 Colorectal Cancer Screening: Colonoscopy 05/09/2024 05/09/2019 COVID-19 Vaccine ( season) 2025 12/30/2024, 10/17/2023, 09/04/2022, Additional history exists Hypertension/CHF/CAD Annual BMP Blood Test 11/13/2025 11/13/2024, 10/30/2024, 12/26/2023 RSV Immunization Adult Patients (1 - 1-dose 75+ series) 2027 DTaP,Tdap,and Td Vaccines (3 - Td or Tdap) 12/06/2028 12/06/2018, 07/12/2009 Cholesterol Screening (Lipid Panel) 01/20/2030 01/20/2025, 10/30/2024, 12/26/2023 Pneumococcal Vaccine: 50+ Years Completed 03/27/2022, 12/06/2018 Influenza Vaccine Completed 12/23/2024, , 09/04/2022, Additional history exists HIB Vaccines [...] age to complete this topic Meningococcal B Vaccine Aged Out No l onger eligible based on patient's age to complete this topic RSV Immunization Patients Under 20 months Aged Out No longer eligible based on patient's age to complete this topic Varicella Vaccines Aged Out No longer eligible based on patient's age to complete this topic Procedures Procedure Name Priority Date/Time Associated Diagnosis Comments POC PROTIME INR BLOOD Routine 04/02/2025 3:19 PM EDT Atrial fibrillation, unspecified type (CMS/HCC V24, CMS/HCC V28) POC PROTIME INR BLOOD Routine 03/19/2025 3:19 PM EDT Atrial fibrillation, unspecified type (CMS/HCC V24, CMS/HCC V28) POC PROTIME INR BLOOD Routine 03/16/2025 9:03 AM EDT Atrial fibrillation, unspecified type (CMS/HCC V24, CMS/HCC V28) [id number], RSV, FLU A AND B QUALITATIVE RT-PCR, LOCAL REFERENCE LAB Routine 03/16/2025 9:00 AM EDT Viral upper respiratory tract infection XR CHEST 2 VIEWS Routine 03/16/2025 8:55 AM EDT Viral upper respiratory tract infection TRANSTHORACIC ECHOCARDIOGRAM (TTE) COMPLETE Routine 03/09/2025 4:25 PM EDT Atrial fibrillation, unspecified type (CMS/HCC V24, CMS/HCC V28) EXTERNAL CLINICAL LAB 03/03/2025 EXTERNAL CLINICAL LAB 02/26/2025 EXTERNAL CLINICAL LAB 02/24/2025 EXTERNAL CLINICAL LAB 02/23/2025 POC PROTIME INR BLOOD Routine 02/16/2025 9:20 AM EDT Atrial fibrillation, unspecified type (CMS/HCC V24, CMS/HCC V28) POC PROTIME INR BLOOD Routine 01/26/2025 9:11 AM EST Atrial fibrillation, unspecified type (CMS/HCC V24, CMS/HCC V28) ECG 12-LEAD Routine 01/20/2025 1:38 PM EST Atrial fibrillation, unspecified type (CMS/HCC V24, CMS/HCC V28) LIPID PANEL WITH REFLEX TO DIRECT LDL Routine 01/20/2025 11:37 AM EST Hyperlipemia BASIC METABOLIC PANEL Routine 11/13/2024 9:36 AM EST DAVIDE (acute kidney injury) (CMS/HCC V24) HM COLONOSCOPY Routine 05/09/2019 from Last 3 Months or Most Recently Relevant to Health Maintenance Results * POC Protime INR Blood (04/02/2025 3:19 PM EDT) Only the most recent of5 resultswithin the time period is included. Lot Number INR POC 2.3 Prothrombin Time POC Exp Date Blood 04/02/2025 3:19 PM EDT Soraida Palomo DO POINT OF CARE TEST ENTER/EDIT ORDERABLES Final Result * [id number], RSV, Influenza A and B qualitative RT-PCR (03/16/2025 9:00 AM EDT) SARS COV-2 Not Detected Not Detected LAB MOLECULAR DIAGNOSTICS METHOD 03/17/2025 9:37 AM EDT [facility] Comment: Disclaimer: The manner in which this information is used to guide patient care is the responsibility of the healthcare provider. Testing was performed using the [employer] Alinity m SARS-CoV-2 test. This test has been authorized by FDA under an Emergency Use Authorization (EUA). This test is only authorized for the duration of time the declaration that circumstances exist justifying the authorization of the emergency use of in vitro diagnostic tests for detection of SARS-CoV-2 virus and/or diagnosis of COVID-19 infection under section 564(b)(1) of the Act, 21 U.S.C. 360bbb- 3(b)(1), unless the authorization is terminated or revoked sooner. Fact sheet for Healthcare Providers can be found at: https://www.fda.gov/media/767950/download Fact sheet for Patients can be found at: https://www.fda.gov/media/032445/download Influenza A PCR Not Detected Not Detected LAB MOLECULAR DIAGNOSTICS METHOD 03/17/2025 9:37 AM EDT [facility] Influenza B PCR Not Detected Not Detected LAB MOLECULAR DIAGNOSTICS METHOD 03/17/2025 9:37 AM EDT [facility] RSV PCR Not Detected Not Detected LAB MOLECULAR DIAGNOSTICS METHOD 03/17/2025 9:37 AM EDT [facility] Swab Nasopharyngeal structure / Unknown Non-blood Collection / Unknown 03/16/2025 9:00 AM EDT 03/16/2025 9:16 AM EDT us Chrissy Monique NP LAB MICROBIOLOGY - GENERAL O RDERABLES Final Result [facility] [address] [place] [address], * XR Chest 2 Views (03/16/2025 8:55 AM EDT) Anatomical Region Laterality Modality Body Radiographic Bela ging 03/16/2025 10:3 2 AM EDT Narrative 03/16/2025 10:33 AM EDT Chest, 2 views. History cough. No prior studies are available for comparison. There is no pneumothorax, pleural effusions or focal consolidations. Cardiomediastinal silhouette is unremarkable. CONCLUSIONS: No acute radiographic abnormalities in the chest -------- FINAL REPORT -------- Dictated By: Kianna Boogie Dictated Date: 03/16/2025 10:32 ET Assigned Physician: Kianna Boogie Reviewed and Electronically Signed By: Kianna Boogie Signed Date: 03/16/2025 10:33 ET Workstation ID: [id number] Transcribed By: Self Edit Transcribed Date: 03/16/2025 10:32 ET Procedure Note Kianna Boogie MD - 03/16/2025 Chest, 2 views. History cough. No prior studies are available for comparison. There is no pneumothorax, pleural effusions or focal consolidations.Cardiomediastinal silhouette is unremarkable. CONCLUSIONS: No acute radiographic abnormalities in the chest -------- FINAL REPORT -------- Dictated By: Kianna Boogie Dictated Date: 03/16/2025 10:32 ET Assigned Physician: Kianna Boogie Reviewed and Electronically Signed By: Kianna Boogie Signed Date: 03/16/2025 10:33 ET Workstation ID: [id number] Transcribed By: Self Edit Transcribed Date: 03/16/2025 10:32 ET us Chrissy Monique NP IMG XR PROCEDURES Final Resu lt * (ABNORMAL) TRANSTHORACIC ECHOCARDIOGRAM (TTE) COMPLETE (03/09/2025 4:25 PM EDT) LV EDV (A2C) 96 mL CV PACS LV EDV (A4C) 107 mL CV PACS LV Diastolic Volume (BP) 103 62 - 150 mL CV PACS LV ESV (A2C) 56 mL CV PACS LV ESV (A4C) 52 mL CV PACS LV Systolic Volume (BP) 55 21 - 61 mL CV PACS IVSD 1.1(A) 0.6 - 1.0 cm CV PACS LVIDD 5.2 4.2 - 5.8 cm CV PACS LVIDS 3.6 2.5 - 4.0 cm CV PACS LVOT Diameter 2.5 cm CV PACS LVOT Mean Grad 1 mmHg CV PACS LVOT Peak VTI 13.9 cm CV PACS LVOT Mean Rai 0.5 m/s CV PACS LVOT Peak Rai 0.8 m/s CV PACS LVOT Peak Gradient 2 mmHg CV PACS LVPWD 1.1(A) 0.6 - 1.0 cm CV PACS Ejection Fraction (A2C) 42 % CV PACS Ejection Fraction (A4C) 51 % CV PACS Ejection Fraction (BP) 47 % CV PACS LVOT Area 4.9 cm2 CV PACS LVOT Stroke Volume 68 mL CV PACS Left Atrium Minor Hubbell 8.2 cm CV PACS Left Atrium Major Hubbell 8.0 cm CV PACS LA Area Sys (A2C) 42 cm2 CV PACS LA Area Sys (A4C) 42 cm2 CV PACS LA Volume (BP) 176 mL CV PACS RA Area 36.1 cm2 CV PACS RA 2D Volume 131 mL CV PACS Aortic Sinus Valsalva 3.5 cm CV PACS Ascending Aorta 3.8 cm CV PACS PV Acceleration Time 109 ms CV PACS RV Diastolic Basal Dimension 4.5(A) 2.5 - 4.1 cm CV PACS TAPSE 24 mm CV PACS TR Peak Velocity 2.75 m/s CV PACS TR Peak Gradient 30 mmHg CV PACS Relative Wall Thickness ratio 0.42 CV PACS FS 31 % CV PACS LV Mass 2D 221 g CV PACS LVOT flow 245 mL/s CV PACS BSA 2.51 m2 CV PACS LV Diastolic Volume Index (BP) 42 34 - 74 mL/m2 CV PACS LV Systolic Volume Index (BP) 22 11 - 31 mL/m2 CV PACS LV EDV Index (A4C) 43 mL/m2 CV PACS LV ESV Index (A4C) 21 mL/m2 CV PACS LV EDV Index (A2C) 39 mL/m2 CV PACS LV ESV Index (A2C) 23 mL/m2 CV PACS LA Volume Index (BP) 71 mL/m2 CV PACS LVIDD Index 2.11 cm/m2 CV PACS LVIDS Index 1.46 cm/m2 CV PACS LV Mass Index 2D 89 50 - 102 g/m2 CV PACS LVOT Stroke Index 28 mL/m2 CV PACS RA 2D Volume Index 53(A) 18 - 32 mL/m2 CV PACS Ascending Aorta Index 1.54 cm/m2 CV PACS Right Ventricular Peak Systolic Pressure 45 mmHg CV PACS Est. RA Pressure 15 mmHg CV PACS Anatomical Region Laterality Modality Ultrasound Narrative 04/08/2025 4:13 PM EDT ?Left ventricle cavity size is normal. ??There is mild, concentric left ventricular hypertrophy. ??There is normal left ventricular regional wall motion. ??Left ventricular systolic function is low normal with an ejection fraction of 50-55%. ??There is septal flattening in diastole consistent with RV volume overload. ?Right ventricle cavity is mildly enlarged. Right ventricular systolic function is normal. ?There is no hemodynamically significant valve disease. ??Minor valvular abnormalities as below. ?There is evidence of pulmonary hypertension with RV systolic pressure 45 mmHg. ??There is evidence of high right atrial pressure. ?There is severe biatrial enlargement. Left Ventricle Left ventricle cavity size is normal. There is mild hypertrophy. Systolic function is low normal with an ejection fraction of 50-55%. otherwise there are no regional LV wall motion abnormalities. Unable to assess diastolic function due to atrial fibrillation. Right Ventricle Right ventricle cavity is mildly dilated. Systolic function is normal. Normal TAPSE (> 17 mm). Left Atrium Left atrium cavity is severely dilated. Right Atrium Right atrium cavity is severely dilated. IVC/SVC RA pressures is estimated to be 15 mmHg (IVC diameter >21 mm and decreases <50% during inspiration). Mitral Valve The leaflets are mildly thickened and exhibit normal excursion. There is symmetric leaflet tethering. There is mild annular calcification. There is mild regurgitation. Tricuspid Valve The leaflets exhibit normal excursion. There is mild regurgitation. The right ventricular systolic pressure is elevated. The RVSP is estimated at 45 mmHg. Aortic Valve The aortic valve is trileaflet. The leaflets are mildly thickened and exhibit normal excursion. There is no regurgitation or stenosis. Pulmonic Valve Pulmonic valve structure is normal. There is trace pulmonic valve regurgitation. Ascending Aorta The aorta appears normal in size. Ascending aorta is likely upper normal for age and body surface area at 3.8 cm. Pericardium Pericardium appears normal. Study Details Overall the study quality was adequate. us Demetrio Alexander NP CV ECHO PROCEDURES Final Result * External clinical lab (03/03/2025) Only the most recent of4 resultswithin the time period is included. us Provider [facility] LAB BLOOD ORDERABLES Fin al Result * ECG 12 lead (01/20/2025 1:38 PM EST) Ventricular Rate ECG 58 BPM GEMUSE Atrial Rate 340 BPM GEMUSE QRS Duration 80 ms GEMUSE Q-T Interval 406 ms GEMUSE QTc 398 ms GEMUSE R Hubbell 91 degrees GEMUSE T Hubbell 34 degrees GEMUSE ECG Interpretation Atrial fibrillation with slow ventricular response Rightward axis Poor R wave progression Abnormal ECG When compared with ECG of 20-FEB-2020 11:58, No significant changes are noted Confirmed by ASHLEY PHILLIPS ([id number]) on 01/28/2025 5:47:50 PM GEMUSE 01/20/2025 10:5 3 AM EST 01/28/2025 5:47 PM EST Demetrio Alexander NP ECG ORDERABLES Edited Result - Final GEMUSE * (ABNORMAL) Lipid panel with reflex to direct LDL (01/20/2025 11:37 AM EST) Cholesterol 160 0 - 200 mg/dL LAB CHEMISTRY METHOD 01/20/2025 3:22 PM [facility] Triglycerides 117 0 - 150 mg/dL LAB CHEMISTRY METHOD 01/20/2025 3:22 PM EST [facility] HDL 35(L) >=40 mg/dL LAB CHEMISTRY METHOD 01/20/2025 3:22 PM [facility] LDL Calculated 102(H) 0 - 100 mg/dL LAB CHEMISTRY METHOD 01/20/2025 3:22 PM EST [facility] VLDL Cholesterol Mike 23.4 mg/dL LAB CHEMISTRY METHOD 01/20/2025 3:22 PM [facility] Non HDL Chol. (LDL+VLDL) 125 <145 mg/dL LAB CHEMISTRY METHOD 01/20/2025 3:22 PM [facility] Chol/HDL Ratio 4.6(H) 0.0 - 4.4 LAB CHEMISTRY METHOD 01/20/2025 3:22 PM [facility] Blood Venous blood specimen / Unknown Venipuncture / Unknown 01/20/2025 11:37 AM EST 01/20/2025 11:37 AM EST Demetrio Alexander NP LAB BLOOD ORDERABLES Final Resul t [facility] [address] [place] [address], [place] [phone] * Basic metabolic panel (11/13/2024 9:36 AM EST) Sodium 139 133 - 145 mmol/L LAB CHEMISTRY METHOD 11/13/2024 12:44 PM [facility] Potassium 4.8 3.5 - 5.5 mmol/L LAB CHEMISTRY METHOD 11/13/2024 12:44 PM [facility] Chloride 105 96 - 110 mmol/L LAB CHEMISTRY METHOD 11/13/2024 12:44 PM [facility] CO2 26 21 - 32 mmol/L LAB CHEMISTRY METHOD 11/13/2024 12:44 PM [facility] Anion Gap 8 3 - 11 LAB CHEMISTRY METHOD 11/13/2024 12:44 PM [facility] Glucose 95 70 - 100 mg/dL LAB CHEMISTRY METHOD 11/13/2024 12:44 PM [facility] BUN 19 5 - 25 mg/dL LAB CHEMISTRY METHOD 11/13/2024 12:44 PM [facility] Creatinine 1.22 0.70 - 1.30 mg/dL LAB CHEMISTRY METHOD 11/13/2024 12:44 PM [facility] eGFR 63 >=60 mL/min/1. 73m2 LAB CHEMISTRY METHOD 11/13/2024 12:44 PM [facility] Comment:Calculation based on the??Chronic Kidney Disease Epidemiology Collaboration (CKD-EPI) equation refit??without adjustment for race. BUN/Creatinine Ratio 15.6 LAB CHEMISTRY METHOD 11/13/2024 12:44 PM EST [facility] Calcium 9.2 8.5 - 10.5 mg/dL LAB CHEMISTRY METHOD 11/13/2024 12:44 PM EST [facility] Blood Venous blood specimen / Unknown Venipuncture / Unknown 11/13/2024 9:36 AM EST 11/13/2024 9:36 AM EST Gabriele Roberson MD LAB BLOOD ORDERABLES Final Res ult [facility] [address] [place] [address], * Colonoscopy (05/09/2019) Colonoscopy No Interpretation , Abstracted Anatomical Region Laterality Modality Other Historical Provider HEALTH MAINTENANCE Final Result from Last 3 Months or Most Recently Relevant to Health Maintenance Insurance [employer] [place] MEDICARE ADVANTAGE Care Teams Population Geneticist Relationship Specialty Start Date End Date Gabriele Roberson MD [address] [place] [phone] (work) PCP - General Internal Medicine 10/13/24
== END ==
LOC: HO.SL 15:55
PROVIDERS: PCP Internal Medicine; Visit Provider Physician Assistant Medical
DX: G47.19 Other hypersomnia (principal)
CPT/HCPCS: 95806

== ENCOUNTER → 2025-04-15 16:03 | Outpatient (BNV) | payer MEDICARE, SELFPAY | PROVIDERS: PCP Internal Medicine; Visit Provider Psychiatry & Neurology Neurology | DX: G47.33 Obstructive sleep apnea (adult) (pediatric) (principal) | CPT/HCPCS: 95806 ==

== ENCOUNTER 2025-05-06 09:05 | Outpatient (AMB) | payer MEDICARE, SELFPAY ==
--- NOTE | 2025-05-06 09:08 | A.OFFVIS_ITS ---
Vital Signs 05/06/25 09:10 Height 6 ft 4 in Weight 263 lb 4 oz BMI 32.0 BP 118/74 Blood Pressure Location Rt brachial Position Sitting Pulse 55 Pulse Source Pulse Oximeter Pulse Oximetry (%) 98 Oxygen Delivery Method Room Air Intake Visit Reasons: 3 mo follow up Intake Note: Patient presents follow up Sleep/Cognitive. Labs in chart, HST in chart 04/15(AHI-14, Supine AHI-41, SUPRIYA 81%. Trial APAP 5-20cm) Accompanied by: Spouse Allergies No Known Allergies Allergy (Verified 05/06/25 09:13) HPI Comments Details: 74y/o r. handed male with AFib, comes for follow up of cognitive decline. 21May 2024 HST AHI 14 and supine AHI is 41%, O2 Supriya to 81% and start cpap therapy at [id number]. He says STM issues started 6 years ago, he frequently forgets where he places things, and has word finding difficulties. He feels more distracted when multitasking and needs redirection, reminders, loses focus and lacks attention. He is anxious due to political strategists on television, he takes lorazepam and citalopram to manage his anxiety. He continues to snore at night and feels fatigued. His father passed at 82 due LBDA. His cognition has been the same as per girlfriend and he works daily in a [employer] in [place]. They both c/o a step in the deck where they both have tripped and fallen off of due to the step. He is starting to eat better and lose weight, today he is 263, lost about 7 lbs, and walking daily. He does not drink alcohol, or smoke. [facility] Medical History Hypersomnia Snoring Polio Depression Anxiety Atrial fibrillation GERD (gastroesophageal reflux disease) Hyperlipidemia Surgical History History of spinal surgery Hx of tonsillectomy History of esophagogastroduodenoscopy H/O colonoscopy Family History Father Prostate cancer Alzheimer disease Mother Enlarged heart Social History Alcohol intake: current Alcohol intake frequency: holidays/special occasions only Patient Tobacco Use Status: Former Tobacco user Physical Exam Vital Signs: Last Vital Signs Pulse 55 05/06/25 09:10 BP 118/74 05/06/25 09:10 Pulse Ox 98 05/06/25 09:10 Oxygen Delivery Method Room Air 05/06/25 09:10 BMI result Body Mass Index 32.0 Const Orientation/consciousness: patient oriented x3 Eyes Pupils: Equal, round and reactive pupils present Neuro General: patient oriented x3, gait normal, tone normal, moves all extremities and no focal motor deficits Cranial nerves: Yes Equal, round and reactive pupils present, Yes Nystagmus not present, Yes Normal facial strength present, Yes Midline tongue present, Yes Ability to bilaterally rotate head present and Yes Ability to bilaterally elevate shoulders present Motor exam (neuro): 5/5 motor strength present throughout Psych Appearance: grossly normal Thought process: Normal thought process present Thought content: Normal thought content present Results Reviewed Results Reviewed: HST AHI is 21 and supine AHI is 41 and oxygen Nadirs to 80%. Assessment & Plan Assessment & Plan (1) IGNACIO (obstructive sleep apnea): Code(s): G47.33 - Obstructive sleep apnea (adult) (pediatric) Category: Medical (2) Word finding difficulty: Code(s): R47.89 - Other speech disturbances Category: Medical (3) Cognitive change: Comment: Untreated sleep apnea ?? mood related Code(s): R41.89 - Other symptoms and signs involving cognitive functions and awareness Category: Medical (4) Depression: Code(s): F32.A - Depression, unspecified Category: Medical Qualifiers: Depression Type: unspecified Qualified Code(s): F32.A - Depression, unspecified Plan IGNACIO start cpap therapy. Fatigue reviewed labs today and encouraged him to optimize sleep. Cognitive deficits PET scan and MRI reviewed with patient. Saliva Testing APOE4 Genetic Markers for Dementia, will discuss next visit, yi or Kassy options MMSE at next visti and f/u in 3 months for compliance. Patient Instructions: Sleep Hygiene provided: set a scheduled bedtime and wake time to help regulate the circadian rhythm and balance the release of pituitary hormones. Sleep in a dark room, temperatures below 68 degrees, and no devices n bed. Limit caffeinated products 6 hours prior to bed, and limit fluids 2-4 hours prior to bed. Gentle night yoga, diffusing essential oils, and playing soft music can be relaxing. Wash mask, change tubing and filters as needed, fill reservoir with water. Lion's Paulino, Omegas, edvin seed, flax seed, diet that is rich in nutrient dense foods. Socialize, continue doing puzzles, walking and drinking plenty of water. Coding Level of Care Code Est Pt Level 4 (62833) Diagnoses IGNACIO (obstructive sleep apnea) G47.33 Word finding difficulty R47.89 Cognitive change R41.89 Depression, unspecified depression type F32.A Depression Type: unspecified Time Spent (min) 35 Comment Improving
[2025-05-06 09:10] VITALS: BP 118/74; PULSE 55; O2SAT 98; BMI 32.0
--- OUTSIDE RECORDS SUMMARY | 2025-05-06 09:37 | XMS_ITS | Clinical Summary ---
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 Patient has a [id number] score of a 2 and should remain anticoagulated. I am also going to be updating an echocardiogram. Orders: ECG 12 lead Transthoracic echocardiogram (TTE) complete with PRN contrast, bubble, strain, and 3D order panel; Future Anxiety 05/03/2012 Depression 05/03/2012 Polio 07/12/2009 Overview (09/12/2024): Scoliosis Encounters Date Type Department Care Team Description 04/30/2025 3:15 PM EDT [facility] [phone] Atrial fibrillation, unspecified type (CMS/HCC V24, CMS/HCC V28) (Primary Dx) 04/02/2025 3:15 PM EDT Anticoagulation - Warfarin Visit [facility] - [address] [phone] Atrial fibrillation, unspecified type (CMS/HCC V24, CMS/HCC V28) (Primary Dx) 03/26/2025 Telephone Internal Medicine - [address] [phone] Rosa M Ascencio [place] 03/25/2025 2:30 PM EDT Office Visit Internal Medicine - [address] [phone] Chrissy Tapia NP Left otitis media with effusion (Primary Dx); Acute otitis media, unspecified otitis media type; Acute otitis externa of right ear, unspecified type 03/23/2025 Telephone [facility] - [address] [place] [phone] Demetrio Alexander NP ? ? Lipid panel; Future (?? Lipid panel; Future) 03/19/2025 3:15 PM EDT [facility]tico[facility] - [facility] [place] [address] Atrial fibrillation, unspecified type (CMS/HCC V24, CMS/HCC V28) (Primary Dx) 03/16/2025 9:15 AM EDT [facility]ticoagulation - [facility] [phone] Atrial fibrillation, unspecified type (CMS/HCC V24, CMS/HCC V28) (Primary Dx) 03/16/2025 8:47 AM EDT - 03/16/2025 11:59 PM EDT Hospital Encounter Xray - [address] [phone] Discharge Disposition: Home or Self Care 03/16/2025 8:30 AM EDT Office Visit Internal Medicine - [address] [phone] Chrissy Tapia NP Viral upper respiratory tract infection (Primary Dx) 03/16/2025 Telephone Internal Medicine - [address] [phone] Gabriele Roberson MD Appointment 03/09/2025 3:30 PM EDT Ancillary Procedure [facility] - [facility] [address] [facility] [address] [place] [phone] Atrial fibrillation, unspecified type (CMS/HCC V24, CMS/HCC V28) 02/16/2025 9:15 AM EDT Anticoagulation - [facility] [phone] Atrial fibrillation, unspecified type (CMS/HCC V24, CMS/HCC V28) (Primary Dx) from Last 3 Months Immunizations Name Administration Dates Next Due Influenza trivalent, 0.5mL (Fluad) 65yo and olde r 10/16/2023 Influenza trivalent, 0.5mL, preservative free (Fluarix; FluLaval; Fluzone) ages 6mo and older (Afluria) 3 years and older 09/21/2005 [employer] SARS-CoV-2 COVID-19, mRNA, LNP-S, preservative free 02/24/2021,02/03/2021 [...] TONSILLECTOMY PROCEDURE: HISTORICAL TONSILLECTOMY ESOPHAGOGASTRODUODENOSCOPY 10/19/08 PROCEDURE: SC ESOPHAGOGASTRODUODENOSCOPY TRANSORAL DIAGNOSTIC; COMMENT: mild erosive esophagitis COLONOSCOPY 12/29 PROCEDURE: SC COLONOSCOPY STOMA DX INCLUDING COLLJ SPEC SPX; COMMENT: Andrés; rpt 10 y COLONOSCOPY W/ POLYPECTOMY 07/04/13 PROCEDURE: SC COLSC FLX W/RMVL OF TUMOR POLYP LESION [...] Department Care Team (Latest Contact Info) Description 05/07/2025 3:15 PM EDT [facility] - [facility] [address] [place] [address] 07/24/2025 2:40 PM EDT Office Visit [facility] - [facility] [address] [facility] [address] [place] [address] Demetrio Alexander, ÓSCAR [address] [place] [address] Health Maintenance Due Date Last Done Comments [...] 12/06/2028 12/06/2018, 07/12/2009 Cholesterol Screening (Lipid Panel) 04/30/2030 04/30/2025, 01/20/2025, 10/30/2024, Additional history exists Pneumococcal Vaccine: 50+ Years Completed 03/27/2022, 12/06/2018 [...] Procedure Name Priority Date/Time Associated Diagnosis Comments LIPID PANEL WITH REFLEX TO DIRECT LDL Routine 04/30/2025 4:02 PM EDT Hyperlipidemia, unspecified hyperlipidemia type POC PROTIME INR BLOOD Routine 04/30/2025 3:24 PM EDT Atrial fibrillation, unspecified type (CMS/HCC V24, CMS/HCC V28) POC PROTIME INR BLOOD Routine 04/02/2025 3:19 PM EDT Atrial fibrillation, unspecified type (CMS/HCC V24, CMS/HCC V28) POC PROTIME INR BLOOD Routine 03/19/2025 3:19 PM EDT Atrial fibrillation, unspecified type (CMS/HCC V24, CMS/HCC V28) POC PROTIME INR BLOOD Routine 03/16/2025 9:03 AM EDT Atrial fibrillation, unspecified type (CMS/HCC V24, CMS/HCC V28) [id number], RSV, FLU A AND B QUALITATIVE RT-PCR, [...] fibrillation, unspecified type (CMS/HCC V24, CMS/HCC V28) BASIC METABOLIC PANEL Routine 11/13/2024 9:36 AM EST DAVIDE (acute kidney injury) (CMS/HCC V24) HM COLONOSCOPY Routine 05/09/2019 from Last 3 Months or Most Recently Relevant to Health Maintenance Results * (ABNORMAL) Lipid panel with reflex to direct LDL (04/30/2025 4:02 PM EDT) Cholesterol 177 0 - 200 mg/dL LAB CHEMISTRY METHOD 04/30/2025 7:03 PM EDT [facility] Triglycerides 105 0 - 150 mg/dL LAB CHEMISTRY METHOD 04/30/2025 7:03 PM EDT [facility] HDL 53 >=40 mg/dL LAB CHEMISTRY METHOD 04/30/2025 7:03 PM EDT [facility] LDL Calculated 103(H) 0 - 100 mg/dL LAB CHEMISTRY METHOD 04/30/2025 7:03 PM EDT [facility] VLDL Cholesterol Mike 21 mg/dL LAB CHEMISTRY METHOD 04/30/2025 7:03 PM EDT [facility] Non HDL Chol. (LDL+VLDL) 124 <145 mg/dL LAB CHEMISTRY METHOD 04/30/2025 7:03 PM EDT [facility] Chol/HDL Ratio 3.3 0.0 - 4.4 LAB CHEMISTRY METHOD 04/30/2025 7:03 PM EDT [facility] Blood Venous blood specimen / Unknown Venipuncture / Unknown 04/30/2025 4:02 PM EDT 04/30/2025 4:02 PM EDT Demetrio Alexander ULTRASONIC CLEANER LAB BLOOD ORDERABLES Final Resul t [facility] [address] [place] [address], [place] [phone] * POC Protime INR Blood (04/30/2025 3:24 PM EDT) Only the most recent of5 resultswithin the time period is included. Pathologist [facility] Lot Number INR POC 4.1 Prothrombin Time POC Exp Date Blood 04/30/2025 3:24 PM EDT Soraida Palomo DO POINT OF CARE TEST ENTER/EDIT ORDERABLES Final Result * [id number], RSV, Influenza A and B qualitative RT-PCR (03/16/2025 9:00 AM EDT) Pathologist [facility] SARS COV-2 Not Detected Not Detected LAB MOLECULAR DIAGNOSTICS METHOD 03/17/2025 9:37 AM EDT [facility] Comment: Disclaimer: The manner in which this information is used to guide patient care is the responsibility of the healthcare provider. Testing was performed using the [employer] Al[employer] m SARS-CoV-2 test. This test has [...] for Healthcare Providers can be found at: https://www.fda.gov/media/175999/download Fact sheet for Patients can be found at: https://www.fda.gov/media/693473/download Influenza A PCR Not Detected Not Detected LAB MOLECULAR DIAGNOSTICS METHOD 03/17/2025 9:37 AM EDT [facility] Influenza B PCR Not Detected Not Detected LAB MOLECULAR DIAGNOSTICS METHOD 03/17/2025 9:37 AM EDT [facility] RSV PCR Not Detected Not Detected LAB MOLECULAR DIAGNOSTICS METHOD 03/17/2025 9:37 AM EDT [facility] Swab Nasopharyngeal structure / Unknown Non-blood Collection / Unknown 03/16/2025 9:00 AM EDT 03/16/2025 9:16 AM EDT us Chrissy Monique NP LAB MICROBIOLOGY - GENERAL O RDERABLES Final Result [facility] [address] [place] [address], * XR Chest 2 Views (03/16/2025 8:55 [...] Signed Date: 03/16/2025 10:33 ET Workstation ID: [id number] Transcribed By: Self Edit Transcribed Date: 03/16/2025 [...] Signed Date: 03/16/2025 10:33 ET Workstation ID: [id number] Transcribed By: Self Edit Transcribed Date: 03/16/2025 [...] 68 mL CV PACS Left Atrium Minor Omega 8.2 cm CV PACS Left Atrium Major Omega 8.0 cm CV PACS LA Area Sys [...] Details Overall the study quality was adequate. Demetrio Alexander NP CV ECHO PROCEDURES Final Result * External clinical lab (03/03/2025) Only the most recent of4 resultswithin the time period is included. Provider [facility] LAB BLOOD ORDERABLES Fin al Result * Basic metabolic panel (11/13/2024 9:36 AM EST) Sodium 139 133 - 145 mmol/L LAB CHEMISTRY METHOD 11/13/2024 12:44 PM [facility] Potassium 4.8 3.5 - 5.5 mmol/L LAB CHEMISTRY METHOD 11/13/2024 12:44 PM [facility] Chloride 105 96 - 110 mmol/L LAB CHEMISTRY METHOD 11/13/2024 12:44 PM [facility] CO2 26 21 - 32 mmol/L LAB CHEMISTRY METHOD 11/13/2024 12:44 PM [facility] Anion Gap 8 3 - 11 LAB CHEMISTRY METHOD 11/13/2024 12:44 PM [facility] Glucose 95 70 - 100 mg/dL LAB CHEMISTRY METHOD 11/13/2024 12:44 PM [facility] BUN 19 5 - 25 mg/dL LAB CHEMISTRY METHOD 11/13/2024 12:44 PM [facility] Creatinine 1.22 0.70 - 1.30 mg/dL LAB CHEMISTRY METHOD 11/13/2024 12:44 PM [facility] eGFR 63 >=60 mL/min/1. 73m2 LAB CHEMISTRY METHOD 11/13/2024 12:44 PM [facility] Comment:Calculation based on the??Chronic Kidney Disease Epidemiology Collaboration (CKD-EPI) equation refit??without adjustment for race. BUN/Creatinine Ratio 15.6 LAB CHEMISTRY METHOD 11/13/2024 12:44 PM EST [facility] Calcium 9.2 8.5 - 10.5 mg/dL LAB CHEMISTRY METHOD 11/13/2024 12:44 PM EST [facility] Blood Venous blood specimen / Unknown Venipuncture / Unknown 11/13/2024 9:36 AM EST 11/13/2024 9:36 AM EST us Gabriele Roberson MD LAB BLOOD ORDERABLES Final Res ult [facility] [address] [place] [address], * Colonoscopy (05/09/2019) Colonoscopy No Interpretation , Abstracted Anatomical Region Laterality Modality Other Historical Provider HEALTH MAINTENANCE Final Result from Last 3 Months or Most Recently Relevant to Health Maintenance Insurance [employer] - [place] MEDICARE ADVANTAGE Care Teams Laborer Poultry Hatchery Relationship Specialty Start Date End Date Gabriele Roberson MD [address] [place] [id number] PCP - General Internal Medicine 10/13/24
== END 2025-05-06 10:09 | disposition home or self-care (01) ==
LOC: HO.HSMS 09:06
PROVIDERS: PCP Internal Medicine; Visit Provider Physician Assistant Medical
DX: G47.33 Obstructive sleep apnea (adult) (pediatric) (principal); R47.89 Other speech disturbances; R41.89 Other symptoms and signs involving cognitive functions and awareness; F32.A Depression, unspecified
CPT/HCPCS: 99214

== ENCOUNTER → 2025-05-06 09:05 | Outpatient (BNVA) | payer MEDICARE, SELFPAY | PROVIDERS: PCP Internal Medicine; Visit Provider Physician Assistant Medical | DX: G47.33 Obstructive sleep apnea (adult) (pediatric) (principal); R41.89 Other symptoms and signs involving cognitive functions and awareness; R47.89 Other speech disturbances; F32.A Depression, unspecified | CPT/HCPCS: 99212 ==

== ENCOUNTER 2025-08-06 11:13 | Outpatient (AMB) | payer MEDICARE, SELFPAY ==
--- OUTSIDE RECORDS SUMMARY | 2025-07-16 08:30 | XMS_ITS | Encounter Summary ---
Author Organization [facility] Address [address] [place] [address] Care Team Providers Care Thread Machine Operator Name Role Phone Gabriele Roberson MD Primary Care Provider [phone] Encounter Details Date Type Department Care Team (Latest Contact Info) Description 07/16/2025 8:30 AM EDT Anticoagulation - Warfarin Visit [facility] [place] [phone] Atrial fibrillation, unspecified type (CMS/HCC V24, CMS/HCC V28) (Primary Dx) Social History Tobacco Use Types Packs/Day Years Used Date Smoking Tobacco: Former Cigarettes Q uit: 05/28/2008 Smokeless Tobacco: Never Alcohol Use Standard Drinks/Week Comments No 0 (1 standard drink = 0.6 oz pur e alcohol) Sex and Gender Information Value Date Recorded Sex Assigned at Not on file Legal Sex Male 6:43 AM EST Gender Identity Male 07/06/2025 12:02 PM EDT Sexual Orientation Straight 07/06/2025 12 :02 PM EDT documented as of this encounter Plan of Treatment Not on file documented as of this encounter Procedures Procedure Name Priority Date/Time Associated Diagnosis Comments POC PROTIME INR BLOOD Routine 07/16/2025 8:36 AM EDT Atrial fibrillation, unspecified type (CMS/HCC V24, CMS/HCC V28) documented in this encounter Results * POC Protime INR Blood (07/16/2025 8:36 AM EDT) Lot Number INR POC 2.6 Prothrombin Time POC Exp Date Blood 07/16/2025 8:36 AM EDT Gabriele Roberson MD POINT OF CARE TEST ENTER/EDIT ORDERABLES Final Result documented in this encounter Visit Diagnoses Diagnosis Atrial fibrillation, unspecified type (CMS/[facility] V24, CMS/[facility] V28)- Primary documented in this encounter Care Teams Thread Machine Operator Relationship Specialty Start Date End Date Gabriele Roberson MD [address] [place] [id number] PCP - General Internal Medicine 10/13/24 documented as of this encounter
[2025-08-06 11:26] VITALS: BP 120/72; PULSE 70; O2SAT 98; BMI 32.4
--- NOTE | 2025-08-06 11:26 | A.OFFVIS_ITS ---
Vital Signs 08/06/25 11:26 Height 6 ft 4 in Weight 266 lb 8 oz BMI 32.4 BP 120/72 Blood Pressure Location Lt brachial Position Sitting Pulse 70 Pulse Source Pulse Oximeter Pulse Oximetry (%) 98 Oxygen Delivery Method Room Air Intake Visit Reasons: follow up Intake Note: Patient presents follow UP IGNACIO/Cognitive. Compliance in chart( 66/69days, >=4hrs-94%, Average Usage- 8hr 31min, Med Pressure- 7.5, Med Leaks-8.4, AHI-8.4) MMSE needed. few issues with CPAP. Mask doesn't fit well and questions and events(differ from night to night) Accompanied by: Spouse Allergies No Known Allergies Allergy (Verified 08/06/25 11:29) HPI Comments Details: 75 y/o r. handed male with AFib, comes for follow up of cognitive decline. March 2025 HST c/w AHI 14 and O2 Nadirs to 81% start cpap therapy at [id number]. IGNACIO Compliance Report 04/2025- 06/2025 Total use is 66/69days, and >4hrs is 94%, Average Usage is 8hr 31min. APAP [id number], Med Leaks-8.4cmH20, AHI 9.1/hr. He washes his mask, rinses hoses, changes filters and fills reservoir with water. Mask doesn't fit well and questions why events vary from night to night. He thinks the flow is too weak for him and may need a new mask, or titration study as his AHI is still 9.1/hr. He notices his mask is still slipping off. We discuss adjusting EPR settings to 3. He says he frequently forgets where he places things, and has word finding difficulties. He feels more distracted when multitasking and needs redirection, reminders, loses focus and lacks attention. He is anxious due to family difficulties, he takes lorazepam and celexa to manage his anxiety. He continues to snore at night when the mask starts to fall off, and his bottom lip falls out of the mask. His cognition has been the same as per girlfriend. He is starting to eat better and recognizes he needs to be more active, his weight is 266 today, we speak more about neuro-plasticity and benefits of exercise. [facility] Medical History Hypersomnia Snoring Polio Depression Anxiety Atrial fibrillation GERD (gastroesophageal reflux disease) Hyperlipidemia Surgical History History of spinal surgery Hx of tonsillectomy History of esophagogastroduodenoscopy H/O colonoscopy Family History Father Prostate cancer Alzheimer disease Mother Enlarged heart Social History Alcohol intake: current Alcohol intake frequency: holidays/special occasions only Patient Tobacco Use Status: Former Tobacco user Physical Exam Vital Signs: Last Vital Signs Pulse 70 08/06/25 11:26 BP 120/72 08/06/25 11:26 Pulse Ox 98 08/06/25 11:26 Oxygen Delivery Method Room Air 08/06/25 11:26 BMI result Body Mass Index 32.4 Orientation What is the (year) (season) (date) (day) (month)?: year, season, date, day and month Where are we (state) (county) (town or city) (hospital) (floor)?: state, county, town or city, hospital/clinic and floor Registration Name of 3 unrelated objects clearly and slowly, then ask patient to repeat all 3 of them. (1st repeat determines score. Make sure they can repeat all three): object 1, object 2 and object 3 Attention & Calculation (CHOOSE ONE) Ask pt to begin with 100 & count backward by 7. Stop after 5 repeats. If pt cannot ask them to spell the word WORLD backward.: 93, 86, 79, 72 and 65 Recall Ask patient to repeat the 3 items from question #3.: object 1, object 2 and object 3 Language Show patient a wristwatch & ask what it is. Repeat for pencil.: watch and pencil Ask the patient to repeat the phrase 'No ifs, ands, or buts' after you.: correct Ask the patient to 'take a piece of paper with their right hand' 'fold paper in half' 'place paper on floor': take paper in right hand, fold paper in half and place paper on floor Print the sentence 'CLOSE YOUR EYES' on a piece. If patient actually closes eyes then score.: followed written direction Give patient a blank piece of paper & ask to write a sentence. Score if it contains a noun & verb.: sentence contains subject and verb Score Score: 29 Results Reviewed Results Reviewed: IGNACIO Compliance Report 04/2025- 06/2025 Total use is 66/69days, and >4hrs is 94%, Average Usage is 8hr 31min. APAP [id number], Med Leaks-8.4cmH20, AHI 9.1/hr. He washes his mask, rinses hoses, changes filters and fills reservoir with arpit er. APO E4 Allele/ Mutation Testing 01/2025 SEE NOTE QUEST AD DETECT? APOE ISOFORM, PLASMA: E3/E3 Reference Range: NOT ESTABLISHED E3/E3: This combination of isoforms is most common and suggests an average risk of Alzheimer's disease. Fidelina ent sex, environment, race, ethnicity, and presence of other risk alleles also contribute to the risk of AD associated with APOE genotype (1,2). Patients who do not carry the APOE4 gene are of average risk for amyloid related imaging abnormalities (ARIA) when receiving amyloid-modifying therapies (3). (1) Nilsa et al. CAR Neurol. 2017;[id number] Assessment & Plan Assessment & Plan (1) Cognitive change: Comment: Untreated sleep apnea ?? mood related Code(s): R41.89 - Other symptoms and signs involving cognitive functions and awareness Category: Medical (2) IGNACIO (obstructive sleep apnea): Code(s): G47.33 - Obstructive sleep apnea (adult) (pediatric) Category: Medical (3) Snoring: Code(s): R06.83 - Snoring Category: Medical Plan Titration study to adjust pressures AHI is 9.1 today, and face mask with chin straps/ supplies with mask fitting, lip is falling out of mask at night and causing him to snore. MMSE is 29/30 today. Continue Daily exercise and engage in meaningful social activities. Elevated B12, may reduce to 3x per week. APO-E4 testing results pt. is E3/E3 avg. risk for ARIA during therapy. Orders: Orders RT PSG in-lab sleep titration Today G47.33 - Obstructive sleep apnea (adult) (pediatric) Patient Instructions: Sleep Hygiene provided: set a scheduled bedtime and wake time to help regulate the circadian rhythm and balance the release of pituitary hormones. Sleep in a dark room, temperatures below 68 degrees, and no devices n bed. Limit caffeinated products 6 hours prior to bed, and limit fluids 2-4 hours prior to bed. Gentle night yoga, diffusing essential oils, and playing soft music can be relaxing. Coding Level of Care Code Est Pt Level 4 (33665) Diagnoses Cognitive change R41.89 IGNACIO (obstructive sleep apnea) G47.33 Snoring R06.83
--- OUTSIDE RECORDS SUMMARY | 2025-08-06 14:45 | XMS_ITS | Encounter Summary ---
Author Organization [facility] Address [address] [place] [address] Care Team Providers Care Draft Roller Picker Name Role Phone Gabriele Roberson MD Primary Care Provider [phone] Encounter Details Date Type Department Care Team (Latest Contact Info) Description 08/06/2025 2:45 PM EDT Anticoagulation - Warfarin Visit [facility] [place] [id number] Atrial fibrillation, unspecified type (CMS/HCC V24, CMS/HCC [...] Diagnosis Comments POC PROTIME INR BLOOD Routine 08/06/2025 2:12 PM EDT Atrial fibrillation, unspecified type (CMS/HCC V24, CMS/HCC V28) documented in this encounter Results * POC Protime INR Blood (08/06/2025 2:12 PM EDT) Lot Number INR POC 2.2 Prothrombin Time POC Exp Date Blood 08/06/2025 2:12 PM EDT Gabriele Roberson MD POINT OF CARE TEST ENTER/EDIT ORDERABLES Final Result documented in this encounter Visit Diagnoses Diagnosis Atrial fibrillation, unspecified type (CMS/[facility] V24, CMS/[facility] V28)- Primary documented in this encounter Care Teams Draft Roller Picker Relationship Specialty Start Date End Date Gabriele Roberson MD [address] [place] [id number] PCP - General Internal Medicine 10/13/24 documented as of this encounter
--- OUTSIDE RECORDS SUMMARY | 2025-08-06 15:32 | XMS_ITS | Encounter Summary ---
Author Organization [facility] Address [address] [place] [address] Care Team Providers Care Content Producer Name Role Phone Gabriele Roberson MD Primary Care Provider [phone] Reason for Visit * Reason Onset Date Comments Medication 08/04/2025 Eliquis Encounter Details Date Type Department Care Team ([facility] st Contact Info) Description 08/04/2025 Telephone [facility] - [facility] [address] [facility] [address] [place] [address] Demetrio Alexander NP [address] [place] [address] Dr [address] [place] [phone] Social History Tobacco Use Types Packs/Day Years [...] PM EDT documented as of this encounter Progress Notes * Justin Jasso, RN - 08/04/2025 9:57 AM EDT Called pt this AM. States he has already talked with the Coumadin Clinic today and they are aware he is transitioning to Eliquis. Is aware INR needs to be under 2 before starting the Eliquis. Is aware once INR is under 2 and is taking Eliquis to only be taking Eliquis. Is aware to get CBC repeated in one month, is requesting lab and letter to be sent in the mail as a reminder. Is aware to get Lipid panel drawn at earliest convenience per ADAM notes, will use [facility], is aware to fast for 10-12 hours prior to blood draw. Is aware for any other further questions or concerns to call the office back. Is aware to call backonce he has transitioned to Eliquis. * Demetrio Alexander NP - 08/04/2025 9:38 AM EDT Yeah exactly. When the INR is under 2 he then can start the Eliquis. Can we also have him update a CBC in a month. * Justin Jasso RN - 08/04/2025 9:12 AM EDT Transitioning from Warfarin to Eliquis. Please advise. Uses coumadin clinic on [facility] Gabriele Roberson MD Pcp office. Next scheduled INR is due 08/13, INR 2.6 on 07/16. Called pt this AM. States he has not contacted his coumadin clinic to let them know he is transitioning - states he will call them today. Please provide further instructions - wait until INR under 2 and then start Eliquis? * Toshia Sheppard - 08/04/2025 8:53 AM EDT Patient received his Eliquis over the weekend and he was told to call so he can start the transition to this medication. He can be reached at [phone] until 10:15 am and after 4:00 pm. He stated the office can speak to his if he is called in between those hours at [phone] and her nameis Elsy. documented in this encounter Plan of Treatment Scheduled Orders Name Type Priority Associated Diagnoses Orde r Schedule CBC and differential Lab Routine meterman current use of anticoagulant 1 Occurrences starting 08/04/2025 until 08/04/2026 documented as of this encounter Visit Diagnoses Diagnosis nursing home current use of anticoagulant- Primary documented in this encounter Care Teams Content Producer Relationship Specialty Start Date End Date Gabriele Roberson MD [address] [place] [address] PCP - General Internal Medicine 10/13/24 documented as of this encounter
--- OUTSIDE RECORDS SUMMARY | 2025-08-06 15:32 | XMS_ITS ---
Author Name [facility] Organization Unknown Care Team Organization Name Specialty Phone Email Start Date End Chad garcias [facility] 05/09/2025 [facility] Gabriele Roberson Primary Care 10/03/2022 07/14/20 24
--- OUTSIDE RECORDS SUMMARY | 2025-08-06 15:32 | XMS_ITS | Clinical Summary ---
Author Organization [facility] Address [address] [place] [address] Care Team Providers Care Shipping Associate Name Role Phone Unavailable Primary Care Provider Unavailabl e Social History Tobacco Use Types Packs/Day Years Used Date Smoking Tobacco: Never Assessed Sex and Gender Information Value Date Recorded Sex Assigned at Male 05/08/2025 1:21 PM EDT Legal Sex Male 4:39 PM EDT Gender Identity Male 05/08/2025 1:21 PM EDT Sexual Orientation Heterosexual (straight) 05/08 1:21 PM EDT Plan of Treatment Upcoming Encounters Date Type Department Care Team (Late st Contact Info) Description 08/17/2025 1:30 PM EDT Clinical Support [facility] [address], [place] [phone] Shilo Wynne MD [address] [place] [phone] Jacqueline Hernandez Au.D [address] [place] [address] [phone] Health Maintenance Due Date Last Done Comments Advance Care Planning 1950 Hepatitis C Virus Screening 1950 DTaP/Tdap/Td Vaccines (1 - Tdap) 1971 Colonoscopy 1997 Pneumococcal Vaccines 50+ (1 of 1 - PCV) 2002 Zoster (Shingles) Vaccine (1 of 2) 2002 COVID-19 Vaccine ( - 2023-2 5 season) 2024 Influenza Vaccine 06/26/2025 RSV Vaccine 60 years and old er and Patients (1 - 1-dose 75+ series) 2027 Hepatitis B Vaccines Aged Out No long er eligible based on patient's age to complete this topic Insurance BLUE CROSS OUT OF [facility] MEDICARE PART A & B MEDICARE PART A & B
--- OUTSIDE RECORDS SUMMARY | 2025-08-06 15:32 | XMS_ITS | Clinical Summary ---
Author Organization [facility] [address] [place] [address] [place] [phone] Phone Care Team Providers Care Cloth Grader Name Role Phone Gabriele Roberson MD Primary Care Provider [phone] Allergies No known active allergies Medications APPLE CIDER VINEGAR ORAL Take by mouth. Ac tive CYANOCOBALAMIN, VITAMIN B-12, ORAL Take by mouth 1 (one) time each day. Active citalopram (CeleXA) 10 mg tablet Take 1 tablet (10 mg total) by mouth 1 (one) time each day. 09/11/20 22 Active magnesium oxide (MAG-OX) 400 mg magnesium tablet Take 1 tablet (400 mg total) by mouth 1 (one) time each day. Active OMEGA-3 FATTY ACIDS-FISH OIL ORAL Take by mouth. Activ e pravastatin (PRAVACHOL) 40 mg tablet Take 1 tablet (40 mg total) by mouth at bedtime. 30 each 01/22/20 25 026 Active albuterol HFA (ProAir HFA) 90 mcg/actuation inhaler Inhale 2 puffs by mouth every 4 (four) hours if needed for wheezing or shortness of breath. 8.5 g 03/16/20 25 026 Active Additional Information Patient not taking.Reported on 07/24/2025 inhalational spacing device inhaler Used as directed. 1 each 03/16/20 25 026 Active pseudoephedrine (Sudafed) 30 mg tablet Take 1 tablet (30 mg total) by mouth every 4 (four) hours if needed for congestion for up to 10 days. 30 tablet 03/25/20 25 Active Additional Information Patient not taking.Reported on 07/24/2025 fluticasone propionate (FLONASE) 50 mcg/actuation nasal spray Administer 2 sprays into each nostril 1 (one) time each day. Shake gently. Before first use, prime pump. After use, clean tip and replace cap. 16 g 5 03/25/20 25 026 Active metoprolol succinate (TOPROL-XL) 50 mg 24 hr tablet TAKE 1 TABLET BY MOUTH EVERY DAY 90 tablet 1 04/15/20 25 Active warfarin (COUMADIN) 5 mg tablet Take 1-1.5 tablets (5-7.5 mg total) by mouth 1 (one) time each day with dinner. Or as directed by the coumadin clinic. May cause heavy bleeding.Take same time every day . Do not change dietary habits 135 tablet 1 07/16/20 25 Active apixaban (ELIQUIS) 5 mg tablet Take 1 tablet (5 mg total) by mouth 2 (two) times a day. 180 tablet 1 07/24/20 25 Active amLODIPine (NORVASC) 5 mg tabletIndicatio ns:Essential (primary) hypertension,Ch ronic atrial fibrillation, unspecified (CMS/HCC V24, CMS/HCC V28) Take 1 tablet (5 mg total) by mouth 1 (one) time each day. 07/24/20 25 Active warfarin (COUMADIN) 5 mg tablet Take 1-1.5 tablets (5-7.5 mg total) by mouth 1 (one) time each day with dinner. 135 tablet 1 01/22/20 25 025 Discontinued amLODIPine (NORVASC) 10 mg tabletIndicatio ns:Essential (primary) hypertension,Ch ronic atrial fibrillation, unspecified (CMS/HCC V24, CMS/HCC V28) TAKE 1 TABLET BY MOUTH EVERY DAY 90 tablet 2 04/13/20 25 025 Discontinued Active Problems Problem Noted Date Diagnosed Date correction current use of anticoagulant 5 Hypertension 06/13/2023 Overview (09/12/2024): Last Assessment & Plan: Well-controlled on current regimen of metoprolol 50 mg daily and amlodipine 10 mg daily Assessment & Plan (07/24/2025 4:13 PM EDT): He is actually borderline hypotensive at the appointment today. I am going to reduce his amlodipine down to 5 mg p.o. daily, he can continue to eat take the metoprolol 50 mg p.o. daily. Would like him to take blood pressure measurements over the course of the next couple weeks and reach out to us if he gets values outside of normal limits. Assessment & Plan (01/20/2025 1:42 PM EST): Well-controlled. Continue current medication regiment. COVID-19 virus detected 06/16/2022 Hyperlipidemia 11/22/2015 Overview (09/12/2024): Last Assessment & Plan: Continue current pravastatin 20 mg at bedtime, continue to work on dietary and behavioral modification, continue fish oil supplementation for elevated triglycerides Assessment & Plan (07/24/2025 4:14 PM EDT): Patient's pravastatin was increased to 40 mg p.o. daily at previous visit. I am going to have him update a lipid panel. Assessment & Plan (01/20/2025 1:42 PM EST): [...] through the airport-status post exercise nuclear stress test at the end of Oct 2017 for which he exercised for only 4 min to 108% of max predicted heart rate with no [...] DOAC was cost prohibitive Assessment & Plan (07/24/2025 4:12 PM EDT): Going to be updating an echocardiogram. Patient is rate controlled metoprolol 50 mg p.o. daily. He is utilizing warfarin for CVA prophylaxis. Of note he is interested in transitioning to Eliquis. They have had issues with cost in the past, however they would like to see if they can now afford the medication. I am going to order them Eliquis 5 mg p.o. twice daily, and they will pickle processor the medication if it is affordable. They are not going to start taking the Eliquis until they let me know if they are able to pick it up early next week 07/28/2025. The patient is aware to not take 2 anticoagulants at the same time, and will reach out to us so that we can then discontinue the warfarin before he starts the Eliquis. He denies any recent falls or abnormal bleeding Assessment & Plan (01/20/2025 1:42 PM EST): Patient is in atrial fibrillation today. He reports that he does not have any symptoms. Denies any abnormal bleeding. He is rate controlled with metoprolol and is on warfarin for CVA prophylaxis. Patient has a [id number] score of a 2 and should remain anticoagulated. I am also going to be updating an echocardiogram. Orders: ECG 12 lead Transthoracic echocardiogram (TTE) complete with PRN contrast, bubble, strain, and 3D order panel; Future Anxiety 05/03/2012 Depression 05/03/2012 Polio 07/12/2009 Overview (09/12/2024): Scoliosis Encounters Date Type Department Care Team Description 08/06/2025 2:45 PM EDT Anticoagulation - Warfarin Visit [facility] [address] [place] [address] Atrial fibrillation, unspecified type (CMS/HCC V24, CMS/HCC V28) (Primary Dx) 08/04/2025 Telephone [facility] - [address] [place] [address] Demetrio Alexander NP 07/24/2025 2:40 PM EDT Office Visit [facility] - [address] [place] [address] Demetrio Alexander NP Atrial fibrillation, unspecified type (CMS/HCC V24, CMS/HCC V28) (Primary Dx); Hyperlipidemia, unspecified hyperlipidemia type; Primary hypertension; Essential (primary) hypertension; Chronic atrial fibrillation, unspecified (CMS/HCC V24, CMS/HCC V28) 07/16/2025 8:30 AM EDT Anticoagulation - Warfarin Visit [facility] [address] [place] [address] Atrial fibrillation, unspecified type (CMS/HCC V24, CMS/HCC V28) (Primary Dx) 06/18/2025 8:15 AM EDT Anticoagulation - Warfarin Visit [facility] [address] [place] [address] Atrial fibrillation, unspecified type (CMS/HCC V24, CMS/HCC V28) (Primary Dx); 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 05/21/2025 3:15 PM EDT Anticoagulation - Warfarin Visit [facility] [address] [place] [address] Atrial fibrillation, unspecified type (CMS/HCC V24, CMS/HCC V28) (Primary Dx) 05/19/2025 1:45 PM EDT Office Visit [facility] - [address] [place] [address] Gildardo Turner MD Symptoms of upper respiratory infection (URI) (Primary Dx) 05/07/2025 3:15 PM EDT Anticoagulation - Warfarin Visit Coumadin [address] [place] [address] Atrial fibrillation, unspecified type (CMS/HCC V24, CMS/HCC V28) (Primary Dx) from Last 3 Months Immunizations Name Administration Dates Next Due Influenza trivalent, 0.5mL (Fluad) 65yo and olde r 10/16/2023 Influenza trivalent, 0.5mL, preservative free (Fluarix; FluLaval; Fluzone) ages 6mo and older (Afluria) 3 years and older 09/21/2005 [employer] SARS-CoV-2 COVID-19, mRNA, LNP-S, preservative free 02/24/2021,02/03/2021 [...] TONSILLECTOMY PROCEDURE: HISTORICAL TONSILLECTOMY ESOPHAGOGASTRODUODENOSCOPY 10/19/08 PROCEDURE: CO ESOPHAGOGASTRODUODENOSCOPY TRANSORAL DIAGNOSTIC; COMMENT: mild erosive esophagitis COLONOSCOPY 12/29 PROCEDURE: CO COLONOSCOPY STOMA DX INCLUDING COLLJ SPEC SPX; COMMENT: Andrés; rpt 10 y COLONOSCOPY W/ POLYPECTOMY 07/04/13 PROCEDURE: CO COLSC FLX W/RMVL OF TUMOR POLYP LESION [...] Orientation Straight 07/06/2025 12 :02 PM EDT Obstetrics History Last Filed Vital Signs Vital Sign Reading Time Taken Comments Blood Pressure 92/52 07/24/2025 2:44 PM EDT Pulse 61 07/24/2025 2:44 PM EDT Temperature 36.5 C (97.7 F) 05/19/2025 1:53 PM EDT Respiratory Rate 22 03/16/2025 8:28 AM EDT Oxygen Saturation 95% 07/24/2025 2:44 PM EDT Inhaled Oxygen Concentration - - Weight 124 kg (274 lb) 07/24/2025 2:44 PM EDT Height 193 cm (6' 4 ) 07/24/2025 2:44 PM EDT Body Mass Index 33.35 07/24/2025 2:44 PM EDT Plan of Treatment Health Maintenance Due Date Last Done Comments Zoster Vaccines (2 of 3) 05/24/2022 03/29/2022, 10/27 Abdominal Aortic Aneurysm (AAA) Screen 11/04/2022 Falls Risk Assessment 11/04/2022 Hepatitis C Screening 11/04/2022 Social Influencers of Health Screening 11/04/2022 Medicare Annual Wellness Visit 05/02/2024 05/02/2023 Colorectal Cancer Screening: Colonoscopy 05/09/2024 05/09/2019 Depression Screening 11/26/2024 COVID-19 Vaccine ( season) 2025 12/30/2024, 10/17/2023, 09/04/2022, Additional history exists Influenza Vaccine (#1) 2025 , 10/16/2023, 09/04/2022, Additional history exists Hypertension/CHF/CAD Annual BMP Blood Test 11/13/2025 11/13/2024, 10/30/2024, 12/26/2023 RSV Immunization Adult Patients (1 - 1-dose 75+ series) 2027 DTaP,Tdap,and Td Vaccines (3 - Td or Tdap) 12/06/2028 12/06/2018, 07/12/2009 Cholesterol Screening (Lipid Panel) 04/30/2030 04/30/2025, 01/20/2025, 10/30/2024, Additional history exists Pneumococcal Vaccine: 50+ Years Completed 03/27/2022, 12/06/2018 HIB Vaccines Aged Out No longer eligi [...] CMS/HCC V28) POC PROTIME INR BLOOD Routine 07/16/2025 8:36 AM EDT Atrial fibrillation, unspecified type (CMS/HCC V24, CMS/HCC V28) POC PROTIME INR BLOOD Routine 06/18/2025 8:20 AM EDT Atrial fibrillation, unspecified type (CMS/HCC V24, CMS/HCC V28) POC PROTIME INR BLOOD Routine 05/21/2025 2:07 PM EDT Atrial fibrillation, unspecified type (CMS/HCC V24, CMS/HCC V28) POC RAPID [id number], MOLECULAR Routine 05/19/2025 4:45 PM EDT Symptoms of upper respiratory infection (URI) POC PROTIME INR BLOOD Routine 05/07/2025 3:15 PM EDT Atrial fibrillation, unspecified type (CMS/HCC V24, CMS/HCC V28) LIPID PANEL WITH REFLEX TO DIRECT LDL Routine 04/30/2025 4:02 PM EDT Hyperlipidemia, unspecified hyperlipidemia type BASIC METABOLIC PANEL Routine 11/13/2024 9:36 AM EST DAVIDE (acute kidney injury) (CMS/HCC V24) HM COLONOSCOPY Routine 05/09/2019 from Last 3 Months or Most Recently Relevant to Health Maintenance Results * POC Protime INR Blood (08/06/2025 2:12 PM EDT) Only the most recent of5 resultswithin the time period is included. Lot Number INR POC 2.2 Prothrombin Time POC Exp Date Blood 08/06/2025 2:12 PM EDT Gabriele Roberson MD POINT OF CARE TEST ENTER/EDIT ORDERABLES Final Result * Poc Rapid [id number], MOLECULAR (05/19/2025 4:45 PM EDT) [facility] COVID-19/SARS- COV-2 Rapid POC Negative Negative Internal Control Pass Yes Yes Swab Nasopharyngeal structure / Unknown 05/19/2025 4:45 PM EDT Gildardo Turner MD POINT OF CARE TEST ENTER/EDIT OR DERABLES Final Result * (ABNORMAL) Lipid panel with reflex to direct LDL (04/30/2025 4:02 PM EDT) [facility] Cholesterol 177 0 - 200 mg/dL LAB CHEMISTRY METHOD 04/30/2025 7:[address] [facility] Triglycerides 105 0 - 150 mg/dL LAB CHEMISTRY METHOD 04/30/2025 7:[address] [facility] HDL 53 >=40 mg/dL LAB CHEMISTRY METHOD 04/30/2025 7:[address] [facility] LDL Calculated 103(H) 0 - 100 mg/dL LAB CHEMISTRY METHOD 04/30/2025 7:[address] [facility] VLDL Cholesterol Mike 21 mg/dL LAB CHEMISTRY METHOD 04/30/2025 7:[address] [facility] Non HDL Chol. (LDL+VLDL) 124 <145 mg/dL LAB CHEMISTRY METHOD 04/30/2025 7:[address] [facility] Chol/HDL Ratio 3.3 0.0 - 4.4 LAB CHEMISTRY METHOD 04/30/2025 7:[address] [facility] Blood Venous blood specimen / Unknown Venipuncture / Unknown 04/30/2025 4:02 PM EDT 04/30/2025 4:02 PM EDT Demetrio Alexander NP LAB BLOOD ORDERABLES Final Resul t [facility] [address] [place] [address], * Basic metabolic panel (11/13/2024 9:36 AM EST) Sodium 139 133 - 145 mmol/L LAB CHEMISTRY METHOD 11/13/2024 12:[address] [facility] Potassium 4.8 3.5 - 5.5 mmol/L LAB CHEMISTRY METHOD 11/13/2024 12:[address] [facility] Chloride 105 96 - 110 mmol/L LAB CHEMISTRY METHOD 11/13/2024 12:[address] [facility] CO2 26 21 - 32 mmol/L LAB CHEMISTRY METHOD 11/13/2024 12:[address] [facility] Anion Gap 8 3 - 11 LAB CHEMISTRY METHOD 11/13/2024 12:[address] [facility] Glucose 95 70 - 100 mg/dL LAB CHEMISTRY METHOD 11/13/2024 12:[address] [facility] BUN 19 5 - 25 mg/dL LAB CHEMISTRY METHOD 11/13/2024 12:[address] [facility] Creatinine 1.22 0.70 - 1.30 mg/dL LAB CHEMISTRY METHOD 11/13/2024 12:[address] [facility] eGFR 63 >=60 mL/min/1. 73m2 LAB CHEMISTRY METHOD 11/13/2024 12:[address] [facility] Comment:Calculation based on the Chronic Kidney Disease Epidemiology Collaboration (CKD-EPI) equation refit without adjustment for race. BUN/Creatinine Ratio 15.6 LAB CHEMISTRY METHOD 11/13/2024 12:[address] [facility] Calcium 9.2 8.5 - 10.5 mg/dL LAB CHEMISTRY METHOD 11/13/2024 12:[address] [facility] Blood Venous blood specimen / Unknown Venipuncture / Unknown 11/13/2024 9:36 AM EST 11/13/2024 9:36 AM EST Gabriele Roberson MD LAB BLOOD ORDERABLES Final Res ult [facility] [address] [place] [address], [place] [phone] * Colonoscopy (05/09/2019) Colonoscopy No Interpretation , Abstracted Anatomical Region Laterality Modality Other Historical Provider HEALTH MAINTENANCE Final Result from Last 3 Months or Most Recently Relevant to Health Maintenance Insurance [employer] - [place] MEDICARE ADVANTAGE Care Teams Cloth Grader Relationship Specialty Start Date End Date Gabriele Roberson MD [address] [place] [id number] PCP - General Internal Medicine 10/13/24
== END 2025-08-06 12:29 | disposition home or self-care (01) ==
LOC: HO.HSMS 11:13
PROVIDERS: PCP Internal Medicine; Visit Provider Physician Assistant Medical
DX: R41.89 Other symptoms and signs involving cognitive functions and awareness (principal); G47.33 Obstructive sleep apnea (adult) (pediatric); R06.83 Snoring
CPT/HCPCS: 99214

== ENCOUNTER → 2025-08-06 11:13 | Outpatient (BNVA) | payer MEDICARE, SELFPAY | PROVIDERS: PCP Internal Medicine; Visit Provider Physician Assistant Medical | DX: G47.33 Obstructive sleep apnea (adult) (pediatric) (principal); R06.83 Snoring; R41.89 Other symptoms and signs involving cognitive functions and awareness; Z99.89 Dependence on other enabling machines and devices | CPT/HCPCS: 99212 ==